=== PATIENT | male | born 1955 | race African-American/Black ===

== ENCOUNTER 2016-12-18 12:45 | Inpatient (IN) | payer MEDICAID, OTHER ==
[~2016-12-18] VITALS: Ht 177.8 cm; Wt 68.1 kg
[2016-12-18] MEDS ORDERED: FLOM5CAP PO (13:06)
[2016-12-18] MEDS ORDERED: CLAR10CA3 PO (13:06)
[2016-12-18] MEDS ORDERED: MULT1TAB18 PO (13:06)
[2016-12-18] MEDS ORDERED: LISI2.5T3 PO (13:06)
[2016-12-18 13:36] LABS: INR 1.12
[2016-12-18 13:37] LABS: ADD MORPHOLOGY? YES; BASO % 0.4 % (0.0-1.0); EOS % 0.3 % (0.0-3.0); LARGE UNSTAINED CELL # 0.2 K/mm3 (0.0-0.4); LARGE UNSTAINED CELL % 1.3 % (0.0-4.0); LYMPH # 0.9 K/mm3 (1.5-4.5); MEAN CORPUSCULAR HEMOGLOBIN 22.3 pg (27.0-33.0); MEAN CORPUSCULAR HGB CONC 29.5 g/dl (32.0-36.5); MEAN CORPUSCULAR VOLUME 75.6 fl (80.0-96.0); MONO # 0.7 K/mm3 (0.0-0.8); MONO % 5.7 % (0.0-5.0); NEUTROPHILS # 9.7 K/mm3 (1.8-7.7); NEUTROPHILS % 84.3 % (36.0-66.0); PLATELET COUNT, AUTOMATED 516 k/mm3 (150-450); RED CELL DISTRIBUTION WIDTH 20.9 % (11.5-14.5); WHITE BLOOD COUNT 11.5 K/mm3 (4.0-10.0)
[2016-12-18 13:45] LABS: ALBUMIN 3.7 GM/DL (3.2-5.2); ALBUMIN/GLOBULIN RATIO 0.93 (1.00-1.93); BILIRUBIN,DIRECT 0.1 MG/DL (0.0-0.2); BILIRUBIN,TOTAL 0.3 MG/DL (0.2-1.0); CALCIUM LEVEL 9.3 MG/DL (8.8-10.2); CREATININE FOR GFR 5.86 MG/DL (0.70-1.30); GLOMERULAR FILTRATION RATE 12.8 (>49); TOTAL PROTEIN 7.7 GM/DL (6.4-8.2)
[2016-12-18] MEDS: NS 1,000 ML IV SCH (13:45)
[2016-12-18 13:55] LABS: POTASSIUM SERUM 5.5 MEQ/L (3.5-5.1)
[2016-12-18 13:58] LABS: ANISOCYTOSIS 2+; HYPOCHROMASIA 3+
[2016-12-18 13:59] LABS: MICROCYTOSIS 2+
--- NOTE | 2016-12-18 14:53 | REP ---
Clinical: Possible bladder mass. Findings: The prostate gland is severely enlarged and appears to infiltrate the bladder with a somewhat left-sided predominance and measures greater than 9.5 x 6.8 x 7.4 cm. High density material within the bladder may represent extension of the mass and/or hemorrhagic debris. Smart catheter identified within the bladder and somewhat inseparable from surrounding high density material. These findings cause bilateral grade 4/5 hydroureteronephrosis and likely the cause for atrophic left kidney. Extensive conglomerate retroperitoneal adenopathy as well as bilateral pelvic sidewall adenopathy is appreciated. These findings are somewhat limited in evaluation due to the lack of both oral and intravenous contrast enhancement. The osseous structures appear relatively normal without focal sclerotic lesions to identify metastatic disease related to presumed prostate cancer. Liver, spleen, pancreas, gallbladder and bilateral adrenal glands are normal. The enteric system is without obstruction or acute inflammatory process. No ascites. No free air. Lung bases are relatively clear with minuscule area of presumed scarring in the left base. Impression: Severe enlarged prostate gland with extension into the bladder causing grade 4/5 bilateral hydronephrosis as well as atrophic left kidney. Associated significant pelvic and retroperitoneal adenopathy. Findings are most compatible with malignancy. Evaluation is significantly limited by the lack of both oral and intravenous contrast enhancement. Signed by William Amos MD 12/18/2016 02:45 P
[2016-12-18] MEDS ORDERED: ONDANSETRON 4MG/2ML VIAL (J2405) IV PRN (15:30)
[2016-12-18] MEDS: MORPHINE 2 MG/ML 1ML SYRINGE IV PRN (16:10)
[2016-12-18] MEDS ORDERED: SOD POLYSTYRENE SULFONATE SUSP 15 GM/60 ML UD PO ONE (16:15)
[2016-12-18] MEDS: PERCOCET 5MG/325MG TAB PO PRN ×2 (16:35→23:40)
--- NOTE | 2016-12-18 16:37 | HPE ---
DATE OF ADMISSION: 12/18/2016 PRIMARY CARE PROVIDER: None listed. CODE STATUS: FULL CODE. CHIEF COMPLAINT: Abdominal discomfort and distension. HISTORY OF PRESENT ILLNESS: 61-year-old male who is incarcerated locally presents to the emergency department with worsening symptoms of abdominal pressure, distension, difficulty urinating and hematuria that he has noticed with some lower back pressure. Apparently he was seen through [facility] within the last few months, was told that he had some bladder issues that he has not followed up on, was seen by a urologist down there and states that over the last 24 hours or so he has noticed some chills without any rigors, no reported fever but has had increased abdominal discomfort, frequency and hematuria. He denies headache, lightheadedness, dizziness. No chest pain, shortness of breath, productive sputum, cough or hemoptysis. PAST MEDICAL HISTORY: Positive for tobacco use. Positive for BPH, chronic renal insufficiency. PAST SURGICAL HISTORY: Recent uteroscopy on 06/28/2015. The patient stated that he was seen more recently than that but I cannot find any records to substantiate that. At any rate, we will try to reach out to [facility]. FAMILY HISTORY: Noncontributory. SOCIAL HISTORY: Positive tobacco use. Recently incarcerated. ALLERGIES: No known drug allergies. CURRENT MEDICATIONS: - Flomax 0.4 mg daily - multivitamin daily - lisinopril 12.5 mg daily - loratadine 10 mg daily REVIEW OF SYSTEMS: The patient does appear to be in quite a bit of discomfort but he denies lightheadedness, dizziness, headache, blurry vision, double vision. No difficulty with speech or swallow. Denies difficulty with appetite. No chest pain, shortness of breath, dyspnea on exertion, productive sputum or hemoptysis. He has some abdominal distension, frequency, hematuria with some vague back discomfort. Denies any neurologic deficits. No history of bleeding or bruising disorder. No history of venous thromboembolism. No history of underlying psychiatric abnormality. 10-point review of systems complete, pertinent positives are listed. PHYSICAL EXAMINATION: Temperature is 99.7, pulse 114, respiratory rate 18, blood pressure 181/102, SpO2 is 98% on room air. GENERAL: The patient appears to be in no acute distress but does appear to be uncomfortable with the abdominal discomfort. HEENT: Head is atraumatic, normocephalic. Eyes: Pupils equal, round, and reactive to light and accommodation. Throat clear. Neck: Supple. LUNGS: Clear to auscultation bilaterally. HEART: Regular rate and rhythm. ABDOMEN: Soft. Some vague suprapubic discomfort and tenderness. EXTREMITIES: No edema, no calf tenderness. LABORATORY DATA AND DIAGNOSTICS: White count 11.5, hemoglobin 6.1, platelets are 516,000, sodium 138, potassium 5.5, chloride 108, bicarbonate 21, anion gap 9, BUN is 45, creatinine is 5.86, glucose 122, total bilirubin 0.3, direct bilirubin 0.1, AST 14, ALT is 13, alkaline phosphatase 116, albumin 3.7, lipase is 168, INR 1.12. Urinalysis is red, turbid, obscure due to large amount of blood, 1-3 WBCs. Urine culture is pending. Blood cultures pending. The patient has been typed and crossed for blood. Will give him 2 units. IMPRESSION: Mr. Cannon is a 61-year-old gentleman who unfortunately has a bladder / prostate mass seen on CT of the abdomen and pelvis with contrast today which demonstrates severe enlarged prostate gland with extension to the bladder causing a 4-5 bilateral hydronephrosis as well as atrophic left kidney associated with significant pelvic and retroperitoneal adenopathy. Findings most compatible with malignancy. Evaluation is significantly limited due to lack of both oral and IV contrast. PROBLEM LIST: 1. Acute renal failure. 2. Hyperkalemia related to renal failure. 3. Acute blood loss anemia. 4. Hematuria. 5. Pelvic mass, likely bladder cancer. 6. History of high blood pressure. 7. Tobacco use, which we are encouraging smoking cessation and a Nicoderm patch will be provided. PLAN: The patient will be admitted to PCU. Will continue with blood products. Will plan on 2 units of blood. We did contact radiology for placement of bilateral nephrostomy tubes which will be scheduled for tomorrow morning. Will make him nothing by mouth after midnight. Will consult urology for further evaluation and see if we can obtain records from [facility]. DISPOSITION: The patient does appear to be quite ill with the renal failure. He does not appear to be septic at this time, will continue to want to watch him for this, should he develop signs or symptoms of sepsis. Cultures are pending. DVT prophylaxis with TEDs and sequentials..
[2016-12-18] MEDS: ACETAMINOPHEN TAB 650MG DOSE (2X325MG) PO PRN (17:29)
[2016-12-18 17:44] LABS: MICROSCOPIC INDICATED? MAN YES (NO)
[2016-12-18 17:50] VITALS: BP 168/98
[2016-12-18 17:55] LABS: RBC, URINE TNTC /hpf (0-3); SQUAMOUS EPITHELIAL CELL URINE SMALL AMOUNT /hpf (SMALL AMT); WBC, URINE TNTC /hpf (0-3)
[2016-12-18 17:56] LABS: BACTERIA, URINE NONE SEEN; HYALINE CAST, URINE NONE SEEN /lpf (0-1); MICROSCOPIC EXAM PERFORMED
[2016-12-18] MEDS: TAMSULOSIN 0.4 MG CAP PO SCH (18:34)
[2016-12-18] MEDS: NICOTINE 14 MG/24 HR TRANSDERMAL TD SCH (18:34)
[2016-12-18 20:00] VITALS: BP 190/95; PULSE 86
[2016-12-19] MEDS: NS 1,000 ML IV SCH ×3 (01:03→16:16)
[2016-12-19 04:00] VITALS: BP 174/92
[2016-12-19 05:08] LABS: MEAN CORPUSCULAR HEMOGLOBIN 24.6 pg (27.0-33.0); MEAN CORPUSCULAR HGB CONC 31.7 g/dl (32.0-36.5); MEAN CORPUSCULAR VOLUME 77.6 fl (80.0-96.0); RED CELL DISTRIBUTION WIDTH 19.8 % (11.5-14.5); WHITE BLOOD COUNT 11.8 K/mm3 (4.0-10.0)
[2016-12-19 05:19] LABS: CALCIUM LEVEL 8.2 MG/DL (8.8-10.2); CREATININE FOR GFR 6.01 MG/DL (0.70-1.30); GLOMERULAR FILTRATION RATE 12.4 (>49)
[2016-12-19 05:26] LABS: POTASSIUM SERUM 5.2 MEQ/L (3.5-5.1)
[2016-12-19 07:45] VITALS: BP 176/90
--- NOTE | 2016-12-19 07:50 | REP ---
Clinical: Acute renal failure. Technique: Real time mead scale and color evaluation using curved array transducer. Findings: The kidneys are normal in reniform shape with increased parenchymal echogenicity suggesting chronic renal disease. Right kidney measures 12.2 x 5.8 x 6.1 cm with grade III hydronephrosis (proximal ureter measures 14.5 mm diameter). Left kidney measures 10.1 x 5.1 x 4.5 cm with grade IV/V hydronephrosis (proximal ureter measures 17.8 mm diameter). Smart catheter is identified with in the mass/debris filled bladder. Impression: 1. Significant bilateral hydroureteronephrosis and chronic medical renal disease likely secondary to chronic gas and debris filling an irregular appearing bladder. Signed by William Amos MD 12/19/2016 07:41 A
[2016-12-19] MEDS: NICOTINE 14 MG/24 HR TRANSDERMAL TD SCH (08:05)
[2016-12-19] MEDS: ACETAMINOPHEN TAB 650MG DOSE (2X325MG) PO PRN ×3 (08:06→19:55)
[2016-12-19] MEDS: TAMSULOSIN 0.4 MG CAP PO SCH (08:06)
[2016-12-19] MEDS ORDERED: fentaNYL 100 MCG/2 ML INJECTION (J3010) As Ordered ONE (09:02)
[2016-12-19] MEDS ORDERED: MIDAZOLAM INJ 2 MG/2 ML VIAL (J2250) As Ordered ONE (09:02)
[2016-12-19] MEDS ORDERED: LIDOCAINE 2% MDV 20 ML VIAL As Ordered ONE (09:10)
[2016-12-19] MEDS ORDERED: ISOVUE-300 61% 50ML VIAL (Q9967) As Ordered ONE ×2 (09:10→09:14)
[2016-12-19] MEDS ORDERED: cefTRIAXone SOD 1 GM VIAL (J0696) As Ordered ONE (09:21)
--- NOTE | 2016-12-19 11:37 | IPN ---
DATE OF SERVICE: 12/19/2016 Mr. Cannon has no complaints of pain this morning. 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 No complaints of chest pain. Not short of breath. Says that he has previously been treated for urinary obstruction and was offered a surgery, which he declined. Maximum temperature (Tmax) 101.7, current temperature (Tcurrent) 99.9, pulse 105, respiratory rate 20, blood pressure 176/90, 97% on room air. Intake and output (I and O) notable for a negative fluid balance of -1410. He is awake, appropriately interactive, pleasantly conversant. A reasonable historian. Neck is thin, supple. Body mass index (BMI) is 21.6. Breathing is symmetrical. I-to-E ratio is 1:3. Heart is borderline tachycardic. Normal S1, S2. Abdomen is scaphoid, soft, with some mild suprapubic tenderness without rebound or guarding. White cell count 11.8, hemoglobin 7.4, platelets of 388, potassium 5.2, carbon dioxide 20. BUN 48, creatinine 6.0. My assessment is as follows: This is a 61-year-old with acute renal failure, hyperkalemia related to acute renal failure, acute blood loss anemia, ongoing hematuria. The plan is as follows: 1. The patient has acute blood loss anemia. Will receive another unit of blood, which has been ordered. The source of bleeding is genitourinary (). Urology consult has been ordered. 2. The patient has acute renal failure, which is likely acute on chronic with hyperkalemia. I have consulted Dr. Mark for assistance in his management. The patient is getting nephrostomy tubes and urology consultation. Old records have been ordered. 3. The patient has ongoing elevation in blood pressure, which is likely complicated by his underlying renal disease. 4. The patient has fever. Possibility of obstructive uropathy and infection related that is considered. Will start broad-spectrum antibiotics. Urine and blood cultures have been sent previously.
[2016-12-19] MEDS ORDERED: fentaNYL 100 MCG/2 ML INJECTION (J3010) IV PRN (12:00)
[2016-12-19] MEDS ORDERED: LR 1,000 ML IV SCH (12:00)
[2016-12-19] MEDS ORDERED: HYDROmorphone HCL 1 MG/ML SYRINGE (J1170) IV PRN (12:00)
[2016-12-19] MEDS ORDERED: ONDANSETRON 4MG/2ML VIAL (J2405) IV PRN (12:00)
[2016-12-19] MEDS ORDERED: PERCOCET 5MG/325MG TAB PO PRN (12:00)
[2016-12-19] MEDS ORDERED: PERCOCET 5MG/325MG TAB As Ordered ONE (12:14)
[2016-12-19 12:30] VITALS: BP 170/86
[2016-12-19] MEDS ORDERED: cefTRIAXone SOD 1 GM in D5W MINI-BAG PLUS 50 ML IV ONE (14:00)
[2016-12-19] MEDS: MORPHINE 2 MG/ML 1ML SYRINGE IV PRN ×2 (15:30→21:37)
[2016-12-19] MEDS ORDERED: PIPERACILLIN/TAZOBACTAM SOD 3.375 GM in D5W MINI-BAG PLUS 50 ML IV SCH (16:45)
[2016-12-19] MEDS: PIPERACILLIN/TAZOBACTAM SOD 2.25 GM in D5W MINI-BAG PLUS 50 ML IV SCH (17:06)
--- NOTE | 2016-12-19 17:26 | REP ---
The procedure was performed under the direct supervision of Dr. Mckenzie CLINICAL HISTORY: Bilateral hydronephrosis PROCEDURE: Bilateral nephrostomy drainage catheter insertion Medications: 1 gram Rocephin EBL: Less than 2 ml FLUORO TIME: 6.1 minutesCONTRAST: 25 ml Isovue 300DEVICE USED: 10 F Nephrostomy (Resolve) catheter (x2) Lot# [id number] The risks and benefits of the procedure were explained to the patient and informed consent was obtained. Anesthesia was present throughout the procedure for sedation and pain control. The patient was brought into the interventional radiology suite. A time out procedure was performed. The patient was placed in the prone position . The right and left renal collecting systems were localized using ultrasound guidance. The skin was prepped and draped in a sterile fashion. The right kidney was addressed first. The right lower pole claudette was localized using ultrasound guidance. 2% lidocaine was used as a local anesthetic. Using ultrasound guidance 821 gauge needle was inserted and advanced into the claudette. A 0.0 18 guide wire was inserted. The needle was removed and and the dilator and sheath was inserted over the guide wire however cannot be advanced into the collecting system. Multiple attempts were tried. The introducer and guidewire were then removed. The and upper pole calices and localized using ultrasound guidance. 2% lidocaine was used as a local anesthetic. Using ultrasound guidance the 21 gauge needle was inserted into the collecting system. A 0.018 guide wire was inserted. The needle was removed and and the introducer was inserted over the guide wire. The guidewire was removed and the 0.035 guidewire was inserted however was unable to be advanced further into the collecting system. The guidewire was removed and the 0.018 guide wire was reinserted. Introducer was removed and a 5-Chinese Kumpe catheter was inserted over the guide wire. The guide wire was then advanced into the ureter. The catheter was removed and the introducer was reinserted over the guide wire. The guidewire was removed and a 0.035 guidewire was inserted and advanced into the ureter. The introducer was removed and an 8.5 Chinese resolve catheter was inserted over the guide wire. The loop of the catheter was formed in the renal pelvis. The guide wire was then removed. Isovue 300 was injected and images demonstrate good catheter placement. The catheter was affixed to the skin and connected to a gravity drainage bag. The left kidney was then addressed. The left lower pole claudette was localized using ultrasound guidance. 2% lidocaine was used as a local anesthetic. Using ultrasound guidance a 21-gauge needle was inserted and advanced into the collecting system. A 0.018 guidewire was inserted and advanced into the ureter. The needle was removed and the introducer was inserted over the guide wire. The guidewire was removed and a 0.035 a guide wire was inserted and advanced into the ureter. Introducer was removed and a 8.5 Chinese resolve catheter was inserted over the guide wire. The guidewire was removed and the loop of the catheter was formed in the renal pelvis. Isovue 300 was injected and images demonstrate good needle placement. The catheter was affixed to the skin and connected to gravity drainage bag. A sterile dressing was applied over both insertion sites. The patient tolerated the procedure well and there were no immediate complications. This procedure was performed using fluoroscopy. Impression: Successful insertion of bilateral 8.5 Chinese nephrostomy urinary diversion tubes as discussed above. Reviewed by ALBERT Chi 12/19/2016 03:36 PSigned by Cedric Mckenzie MD 12/19/2016 05:17 P
[2016-12-19] MEDS ORDERED: VANCOMYCIN HCL 1,000 MG, VIAL MATE ADAPTER 1 EACH in D5W 250 ML IV ONE (18:00)
[2016-12-19 20:00] VITALS: BP 149/84
[2016-12-19 23:59] VITALS: BP 153/87
[2016-12-20] MEDS: PIPERACILLIN/TAZOBACTAM SOD 2.25 GM in D5W MINI-BAG PLUS 50 ML IV SCH ×3 (00:26→16:28)
[2016-12-20] MEDS: MORPHINE 2 MG/ML 1ML SYRINGE IV PRN ×2 (02:53→21:34)
[2016-12-20 05:31] LABS: MEAN CORPUSCULAR HEMOGLOBIN 25.3 pg (27.0-33.0); MEAN CORPUSCULAR HGB CONC 31.5 g/dl (32.0-36.5); MEAN CORPUSCULAR VOLUME 80.4 fl (80.0-96.0); RED CELL DISTRIBUTION WIDTH 19.7 % (11.5-14.5); WHITE BLOOD COUNT 14.8 K/mm3 (4.0-10.0)
[2016-12-20 05:44] LABS: CALCIUM LEVEL 8.4 MG/DL (8.8-10.2); CREATININE FOR GFR 4.78 MG/DL (0.70-1.30); GLOMERULAR FILTRATION RATE 16.2 (>49); POTASSIUM SERUM 5.1 MEQ/L (3.5-5.1)
[2016-12-20 06:00] VITALS: BP 169/89
[2016-12-20] MEDS: NS 1,000 ML IV SCH ×2 (06:15→15:05)
[2016-12-20 08:00] VITALS: BP 126/72
[2016-12-20] MEDS: TAMSULOSIN 0.4 MG CAP PO SCH (08:58)
[2016-12-20] MEDS: NICOTINE 14 MG/24 HR TRANSDERMAL TD SCH (08:59)
[2016-12-20] MEDS: ACETAMINOPHEN TAB 650MG DOSE (2X325MG) PO PRN (10:52)
--- NOTE | 2016-12-20 11:07 | CR ---
DATE OF CONSULTATION: 12/20/2016 REQUESTED BY: Dr. Kenroy Collins. REASON FOR CONSULTATION: Acute renal failure with bilateral hydronephrosis and urinary retention. HISTORY OF PRESENT ILLNESS: Mr. Cannon is a 61-year-old gentleman who is currently incarcerated and was brought to the emergency room by the senior living officers. His presenting complaints including abdominal distension, hematuria and difficulty voiding. Apparently a few months ago, he was seen at [facility] for similar complaints and at that time, he had a cystoscopy however, he is not aware of a definitive diagnosis. He was lost to followup. In any event, here in the emergency room, CT scan of abdomen and pelvis was done which showed severe enlarged prostate with extension into bladder and grade 4-5 bilateral hydronephrosis as well as atrophic left kidney. There was significant pelvic and retroperitoneal adenopathy noted. The patient is admitted and currently has a three-way Smart catheter for irrigation. He also underwent bilateral nephrostomy tube placement yesterday with good urine output through his right nephrostomy but no urine output through the left nephrostomy. A nephrology consultation was requested yesterday and the patient is seen this morning. PAST MEDICAL AND SURGICAL HISTORY: Known for benign prostatic hypertrophy (BPH) and urinary retention. History of chronic renal insufficiency. Hypertension. MEDICATIONS PRIOR TO ADMISSION: His medications included: - Flomax 0.4 mg daily - lisinopril 2.5 mg daily - multivitamin daily - loratadine 10 mg daily ALLERGIES: The patient has no known drug allergies. PERSONAL AND SOCIAL HISTORY: The patient reports 45 year history of smoking. He denies any alcohol or drug use for last 20 years. He is currently incarcerated. FAMILY HISTORY: Negative for end-stage renal disease. REVIEW OF SYSTEMS: The patient reported some chills prior to admission. There is no fever at present. He reported difficulty voiding with abdominal distension and poor appetite prior to admission. Ears, nose and throat are unremarkable. Cardiovascular system negative for dyspnea or chest pain. Respiratory system negative for cough or hemoptysis. Genitourinary (GI) system is significant for poor appetite. He denies any rectal bleeding or black colored stools. Genitourinary () system is as per history of present illness. The patient has chronic difficulty voiding and urinary retention. Now he has a three-way Smart catheter for irrigation and bilateral nephrostomy tubes. Large mass in prostate invading the bladder is noticed on the CT scan. Hematological system is significant for hematuria and severe anemia requiring transfusions. Endocrine system is negative for diabetes or thyroid problems. Psychosocial system is negative for depression or anxiety. Neurological system is negative for seizures or stroke. PHYSICAL EXAMINATION: The patient is lying in the bed without any acute distress at the time of my visit. Temperature is 97.3 degrees Fahrenheit, heart rate 116 per minute and respiratory rate 20 per minute. Blood pressure 126/72 mmHg and oxygen saturation 98% on room air. His head is atraumatic. Neck is supple and without jugular venous distention (JVD) or thyroid enlargement. Ears, nose and throat are unremarkable. Heart: Sounds are tachycardiac but regular. Lungs: Good air entry bilaterally without any wheezing or rales. Abdomen is soft with suprapubic tenderness and no palpable hepatosplenomegaly. Bowel sounds are present. Extremities: Have no cyanosis or clubbing. Neurologically he is awake, alert and oriented times three. LABORATORY DATA: On admission, his WBC count is 11.5, hemoglobin 6.1 and hematocrit 20.7. Last evening, his hemoglobin was up to 8.2 and hematocrit 26.5 following transfusion. Today his WBC count is 14.8, hemoglobin 7.4 and hematocrit 23.5. On admission his sodium was 138 and potassium 5.5. BUN was 45 and creatinine 5.86. Yesterday BUN was 48 and creatinine 6.0. Today his sodium is 142 and potassium 5.1. CO2 20, BUN 46 and creatinine 4.78. Glucose 100 and calcium 8.4. Imaging studies included a CT scan of abdomen and pelvis which showed bilateral hydronephrosis with atrophic left kidney. A severely enlarged prostate gland. Renal ultrasound was also done which showed right kidney 12.2 cm and left kidney 10.1 cm. Bilateral hydronephrosis and hydroureter noted. PROBLEMS: 1. Acute renal failure superimposed on chronic kidney disease. The patient most likely has significant chronic kidney disease related to chronic obstruction and atrophic left kidney. He had obstructive uropathy related to bladder neck obstruction. He already has a bilateral nephrostomy tube placed. His right kidney is producing good amount of urine and kidney function has started to improve. His left kidney is atrophic and there is minimal to no drainage from the left nephrostomy tube. At this point, kidney function is improving. The patient has no uremic symptoms. There is no emergent indication for dialysis. I suggest to continue with aggressive IV fluid hydration due to possible postobstructive diuresis. 2. 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 Recommend urology evaluation for possible cystoscopy and prostate biopsies. The patient is likely to eventually need surgery and/or radiation plus chemo. 3. Hyperkalemia. He had hyperkalemia on admission which has already improved. Now he has good urine output from the right kidney. No further intervention is indicated at this point. 4. Anemia requiring transfusions. The patient has gross hematuria. He also has history of chronic hematuria and renal failure. At present, I would recommend to continue with transfusions as needed. We will not consider Aranesp due to ongoing blood loss and malignancy. I thank you for involving me in the care of Mr. Cannon. I will follow him along with you.
[2016-12-20 11:44] VITALS: BP 164/86
--- NOTE | 2016-12-20 12:39 | IPN ---
DATE: 12/20/2016 Mr. Cannon is feeling a little better this morning. He has no complaints of pain, chest pain, shortness of breath. He is tolerating a diet. A little frustrated about some of the interpersonal interactions he has had during his stay and at previous hospitalizations. Temperature 97.3, pulse 116, respiratory rate 20, blood pressure 126/72, 98% in room air. Input and output notable for negative fluid balance of -1520. He is having nephrostomy output much higher from his right kidney than his left. He is awake. Appropriately interactive. Mucous membranes are moist. Neck supple. He is thin appearing. Breathing symmetrical, rested. Heart is in a regular rate and rhythm. He is tachycardic with a rate of around 110 on my exam. Radial pulses are 2+. Capillary refill is less than 2 seconds. Abdomen soft, nontender. No lower extremity edema. White cell count 14.8, hemoglobin 7.4, platelets of 351. BUN 46, creatinine 4.78. My assessment is as follows: 61-year-old with acute renal failure in the setting of chronic kidney disease, resolved hyperkalemia, acute blood loss anemia and ongoing hematuria. Plan is as follows: 1. The patient has acute blood loss anemia continues. Will received another unit of blood today. Will repeat hemoglobin and hematocrit this evening. This is likely a genitourinary () source possibly related to undiagnosed malignancy causing bladder outlet obstruction. 2. The patient has acute renal failure: I discussed the case in person with Dr. Mark. Greatly appreciate his assistance in the patient's management. Will give IV fluid and monitor for improvement. 3. Infectious disease: The patient had fever, urinary obstruction and elevated white cell count. The patient has been started on broad-spectrum antibiotics. He was given a single dose of vancomycin and will await culture results. 4. Deep venous thrombosis (DVT) prophylaxis is mechanical.
[2016-12-20] MEDS: PERCOCET 5MG/325MG TAB PO PRN (15:06)
[2016-12-20 15:53] VITALS: BP 175/98
[2016-12-20 20:00] VITALS: BP 154/80
[2016-12-21 00:14] VITALS: BP 142/87
[2016-12-21] MEDS: PIPERACILLIN/TAZOBACTAM SOD 2.25 GM in D5W MINI-BAG PLUS 50 ML IV SCH ×3 (01:25→16:48)
[2016-12-21 04:00] VITALS: BP 137/82
[2016-12-21] MEDS: NS 1,000 ML IV SCH ×2 (04:41→12:45)
[2016-12-21 05:21] LABS: MEAN CORPUSCULAR HEMOGLOBIN 25.6 pg (27.0-33.0); MEAN CORPUSCULAR VOLUME 82.7 fl (80.0-96.0); RED CELL DISTRIBUTION WIDTH 19.4 % (11.5-14.5); WHITE BLOOD COUNT 13.4 K/mm3 (4.0-10.0)
[2016-12-21 05:27] LABS: CALCIUM LEVEL 8.7 MG/DL (8.8-10.2); CREATININE FOR GFR 3.47 MG/DL (0.70-1.30); GLOMERULAR FILTRATION RATE 23.4 (>49); POTASSIUM SERUM 4.5 MEQ/L (3.5-5.1)
[2016-12-21 07:30] VITALS: BP 171/95
[2016-12-21] MEDS: TAMSULOSIN 0.4 MG CAP PO SCH (08:10)
[2016-12-21] MEDS: NICOTINE 14 MG/24 HR TRANSDERMAL TD SCH (08:10)
--- NOTE | 2016-12-21 10:46 | IPN ---
DATE: 12/21/2016 Mr. Cannon is seen this morning on his bedside. He continues to have bladder irrigation with pink return. His right nephrostomy tube is draining pinkish urine. There is minimal drainage from the left nephrostomy tube. The patient denies any fever or chills. He denies any dyspnea or chest pain. On physical exam, temperature 98.9 degrees Fahrenheit, heart rate 104 per minute and respiratory rate 20 per minute. Blood pressure 170/95 mmHg and oxygen saturation 99% on room air. Intake and output records are probably inaccurate. His head is atraumatic. Neck is supple and without JVD or thyroid enlargement. Ears, nose and throat are unremarkable. Heart sounds are tachycardiac but regular. Lungs clear to auscultation. Abdomen soft and minimal tenderness in suprapubic area is present. Bowel sounds are normal. Extremities have no cyanosis or clubbing. Skin has no rash or ulcers. Neurologically he is awake, alert and oriented x3. Today's labs show WBC count 13.4, hemoglobin 8.5 and hematocrit 27.5. Sodium 143 and potassium 4.5. BUN is down to 31 and creatinine 3.47. PROBLEMS: 1. Acute renal failure superimposed on chronic kidney disease. Improvement in kidney function is noticed with good drainage from right nephrostomy tube. At this point, I would recommend to continue with IV fluid hydration and monitoring of kidney function on daily basis. 2. 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 The patient remains on bladder irrigation via a three-way Smart catheter. He has been seen by urology. Further plan of care will be per urology. He is likely to require a biopsy and cystoscopy. 3. Acute blood loss anemia. The patient has received transfusions with some improvement in his anemia. He continues to have gross hematuria through the Smart catheter. He is likely to require further transfusion as needed.
[2016-12-21 11:50] VITALS: BP 160/89
[2016-12-21] MEDS: PERCOCET 5MG/325MG TAB PO PRN (14:23)
[2016-12-21 16:00] VITALS: BP 161/91
--- NOTE | 2016-12-21 18:13 | IPN ---
DATE: 12/21/2016 Mr. Cannon is feeling well today. He is tolerating a diet. Has no complaints of chest pain. No shortness of breath. Does have some suprapubic discomfort. Denies any knowledge of previous bladder tumor. Temperature is 98.9, pulse 98, respiratory rate 20, blood pressure 161/91, 99% on room air. Intake and output notable for a negative balance of -2230. Weight 69.4 kg, body mass index 22. He is awake, appropriately interactive, pleasantly conversant. Mucous membranes moist. Neck is supple. Breathing symmetrical and rested. Heart is in a regular rate and rhythm. He is at times tachycardic. Abdomen soft, doughy, nontender. White cell count 13.4, hemoglobin 8.5, platelets of 443. BUN 31, creatinine 3.47. ASSESSMENT: This is a 61-year-old with acute renal failure in the setting of chronic kidney disease with acute blood loss anemia, ongoing hematuria in the setting of suspected bladder tumor. 1. Acute blood loss anemia. This appears to be stabilized. No role for transfusion today. Will consider on a daily basis. 2. Patient has undiagnosed malignancy causing bladder outlet obstruction. Will need biopsy. Discussed this case by phone with Dr. Stuart and will consider biopsy at this institution. 3. Patient has acute renal failure in the setting of obstructive uropathy. Is showing improvement. His baseline is likely abnormal. 4. Infectious disease. Patient had fever, urinary obstruction, elevated white cell count. He is on broad-spectrum antibiotics. Cultures are pending. He did receive a solitary dose of vancomycin. Will repeat a trough level in the morning. 5. Patient has mechanical deep vein thrombosis (DVT) prophylaxis, which he is wearing during my evaluation. 6. Patient has a complicated social situation, as he is a prisoner at [facility]. If he requires chemotherapy, he may need transfer to another institution, either [place] or [facility] ([facility]), depending on what care is required.
[2016-12-21 20:00] VITALS: BP 151/88
--- NOTE | 2016-12-21 20:40 | REP ---
Clinical: Preoperative assessment . Comparison: None . Findings: The mediastinum and cardiac silhouette are stable and within normal limits for portable technique. Airway is patent and midline. The lung bird are clear without acute consolidation, effusion, or pneumothorax. Skeletal structures are intact. Impression: No acute cardiopulmonary process appreciated. Signed by William Amos MD 12/21/2016 08:31 P
[2016-12-21] MEDS: ACETAMINOPHEN TAB 650MG DOSE (2X325MG) PO PRN (23:12)
[2016-12-22 00:08] LABS: PSA % FREE 24.7 % (.); PSA FREE 1.53 ng/mL; PSA TOTAL 6.2 ng/mL (0.0-4.0)
[2016-12-22] MEDS: PIPERACILLIN/TAZOBACTAM SOD 2.25 GM in D5W MINI-BAG PLUS 50 ML IV SCH ×3 (00:25→16:00)
[2016-12-22 06:00] VITALS: BP 164/95
[2016-12-22] MEDS: NS 1,000 ML IV SCH ×2 (06:41→09:08)
[2016-12-22 07:21] LABS: MEAN CORPUSCULAR HEMOGLOBIN 25.2 pg (27.0-33.0); MEAN CORPUSCULAR HGB CONC 30.2 g/dl (32.0-36.5); MEAN CORPUSCULAR VOLUME 83.4 fl (80.0-96.0); RED CELL DISTRIBUTION WIDTH 19.5 % (11.5-14.5); WHITE BLOOD COUNT 11.3 K/mm3 (4.0-10.0)
[2016-12-22 07:24] LABS: CALCIUM LEVEL 9.1 MG/DL (8.8-10.2); CREATININE FOR GFR 2.59 MG/DL (0.70-1.30); GLOMERULAR FILTRATION RATE 32.8 (>49)
[2016-12-22] MEDS: PERCOCET 5MG/325MG TAB PO PRN (07:29)
[2016-12-22] MEDS: TAMSULOSIN 0.4 MG CAP PO SCH (09:08)
[2016-12-22] MEDS: NICOTINE 14 MG/24 HR TRANSDERMAL TD SCH (09:09)
--- NOTE | 2016-12-22 11:51 | ECGEPIP ---
Stationary ECG Study [facility] Test Date: 2016-12-21 Pat Name: JA WONG Department: Room: [place] [address] Gender: M Shirt Trimmer: : 1955 Requested By: KENROY Tesfaye Order Number: [id number] Reading MD: Kenroy Collins Measurements Intervals [place] Rate: 100 P: 80 WY: 156 QRS: 71 QRSD: 93 T: 63 QT: 316 QTc: 409 Interpretive Statements SINUS TACHYCARDIA Comparison tracing not on file Electronically Signed On 12-22-2016 11:51:24 EDT by Kenroy Collins
[2016-12-22] MEDS: NS 0.45% 1,000 ML IV SCH ×2 (12:19→22:23)
[2016-12-22 14:00] VITALS: BP 166/91
--- NOTE | 2016-12-22 14:54 | IPNPDOC ---
Assessment/Plan Date Seen The patient was seen on 12/22/16. Plan/VTE VTE Prophylaxis Ordered?: Yes Plan/Urinary Catheter Reason for insertion/continuin: Acute obstruct/retention Subjective Review oF Systems Chief Complaint The patient is a 61-year-old male admitted with a reason for visit of hematuria (2 years); bladder tumor; urinary retention; ARF s/p bilateral NT; LK atrophic; DOC patient. Asymptomatic. Since admission (12/18/16), 5u pRBC. Smart light pink on moderate CBI; manual irrigate NS clots. Comfortable. 112, 16, 164/95, 98.5f. Abdo: benign. Bilateral NT. Smart as above. Left NT minimal drainage. Urine culture (12/19/16) negative. (12/22/16) Hg 8.0, wbc 11.3, Cr 2.6 (down). INR (12/18/16) 1.1. CT w/o IV (12/18/16) clot, BPH, LK atrophic, bilateral 4/4 hydronephrosis, retroperitoneal lymphadenopathy. A: Above. P: IV Zosyn. NPO. Cystoscopy, clot evacuation, TURBT. Informed consent on chart. SCD. Objective Vital Signs/I&O Vital Signs Date Time Temp Pulse Resp B/P (MAP) Pulse Ox O2 Delivery O2 Flow Rate FiO2 12/22/16 09:05 16 12/22/16 06:00 98.5 112 164/95 (118) 100 Room Air I&O- Last 24 Hours up to 6 AM 12/22/16 06:00 Intake Total 1000 ml Output Total 8025 ml Balance -7025 ml Laboratory Data Labs 24H Laboratory Tests 2 12/22/16 06:41: Anion Gap 12, Glomerular Filtration Rate 32.8L, Blood Urea Nitrogen 23H, Creatinine 2.59H, Sodium Level 144, Potassium Level 4.0, Chloride Level 112H, Carbon Dioxide Level 20L, Calcium Level 9.1 CBC/BMP Laboratory Tests 12/22/16 06:41 Red Blood Count 3.19 L, Mean Corpuscular Volume 83.4, Mean Corpuscular Hemoglobin 25.2 L, Mean Corpuscular Hemoglobin Concent 30.2 L, Red Cell Distribution Width 19.5 H, Calcium Level 9.1 Microbiology Microbiology 12/18/16 Blood Culture - Preliminary, Resulted No Growth after 72 hours. All specime... 12/19/16 Anaerobic Culture - Final, Complete 12/19/16 Urine Culture - Final, Complete 12/19/16 Urine Culture - Final, Complete 12/19/16 Anaerobic Culture - Final, Complete 12/18/16 Urine Culture - Final, Complete BHAVNA RUBY MD Dec 22, 2016 14:54
[2016-12-22] MEDS ORDERED: NITROGLYCERIN 2% OINT 1 GM *U/D* PKT TOP ONE (15:30)
[2016-12-22 15:42] LABS: VANCOMYCIN RANDOM 3.9 UG/ML
--- NOTE | 2016-12-22 15:49 | IPN ---
DATE: 12/22/2016 Mr. Cannon is feeling well today. Has been up, walking around. No complaints of chest pain. No shortness of breath. Still passing red-stained urine. Temperature 98.5, pulse 112, respiratory rate 17, blood pressure 164/95, 100% on room air. Intake and output notable for negative fluid status. No recorded bowel movements. He is awake, appropriately interactive, pleasantly conversant. Remembers me from previous encounters. Mucous membranes moist. Neck supple. Breathing is symmetrical, rested. Inspiratory to expiratory (I-to-E) ratio is 1:3. Heart is regular rate and rhythm, tachycardic. Abdomen soft with mild suprapubic tenderness. No rebound. No guarding. White count 11.3, hemoglobin 8, platelets of 496. BUN 23, creatinine 2.59. Chest x-ray shows no acute process. EKG shows sinus tachycardia without prior for comparison. ASSESSMENT: This is a 61-year-old with acute renal failure in the setting of chronic kidney disease with acute blood loss anemia, ongoing hematuria in the setting of suspected bladder tumor and bladder outlet obstruction. PLAN: 1. Acute blood loss anemia. Patient's hemoglobin is 8. Would likely benefit from a unit of blood to be transfused prior to going to the operating room (OR) today. 2. Patient has nondiagnosed malignancy. Discussed the case personally with Dr. Dietz, who plans to take the patient for biopsy. Will likely need chemotherapy and further oncologic workup, which will most likely happen at another institution. 3. Patient has resolving acute renal failure. My suspicion is that his baseline creatinine is between 2 and 3. He is likely close to his baseline. He is no longer hyperkalemic. 4. Infectious disease. Patient had fever, urinary obstruction, elevated white cell count. Is on broad-spectrum antibiotics. Repeat vancomycin level is pending. 5. Patient has mechanical deep vein thrombosis (DVT) prophylaxis. 6. Patient has a complicated social situation, as he is a prisoner at [facility]. 7. Patient is presently medically optimized to proceed for cystoscopy.
--- NOTE | 2016-12-22 16:10 | IPN ---
DATE: 12/22/2016 SUBJECTIVE: The patient was seen and examined at the bedside today morning. The patient was standing in his room when I saw the patient, and he reports that he feels comfortable when he is standing. He is nothing by mouth today for cystoscopy. The patient continues to have continuous bladder irrigation. However, renal function continues to improved and he has good drainage from the right percutaneous nephrostomy. There is no good urine output from the left-sided nephrostomy tube at this time. REVIEW OF SYSTEMS: The patient denies any fevers, chills, rigors, headaches, nausea, vomiting, chest pain, shortness of breath. He does report persistent hematuria and he is on continuous bladder irrigation (CPI) at this time, and patient also reports that he has been persistently losing weight. Rest of review of systems is negative. OBJECTIVE: VITAL SIGNS: Temperature is 98.5 degrees Fahrenheit, blood pressure 164/95, pulse is 112, respiratory rate of 17, saturating 100% on room air. INTAKE AND OUTPUT: Urine output recorded in the right-sided drain is 3.5 liters. Weight in the bed scale was 69.4 kg yesterday, and urine output so far today from the right-sided percutaneous nephrostomy is 1.6 liters. PHYSICAL EXAMINATION: GENERAL: The patient is awake, alert, oriented times three, standing at the bedside in no apparent distress. HEAD/NECK: Extraocular muscles intact. Pupils equal, round, and reactive to light. Mucous membranes are moist. Neck is supple. There is no jugular venous distention (JVD). CARDIOVASCULAR: S1, S2. Regular rate. No murmur, rub, or gallop. RESPIRATORY: Chest is clear to auscultation bilaterally. Bilateral equal air entry. No rales or rhonchi. ABDOMEN: Soft, positive bowel sounds. Nontender. No organomegaly. GENITOURINARY: The patient has a CBI catheter at this time and CBI is running at this time and the urine in the bag is blood tinged. The patient also has bilateral percutaneous nephrostomy tubes. Right-sided nephrostomy bag is clear and is draining good amount of urine. However, left-sided nephrostomy bag is not draining urine and there is small amount of blood-tinged urine from yesterday which is around 10 mL. MUSCULOSKELETAL: No clubbing or cyanosis. Pulses are 2+. CENTRAL NERVOUS SYSTEM (ATHLET[employer]INING [employer]): No focal neurological deficit. Power is 5/5 in all extremities. PSYCHIATRIC: Normal mood and affect. LABORATORY DATA: WBC showed a WBC of 11.3, hemoglobin is eight, platelets are 496. BMP showed sodium 144, chloride 112, bicarbonate 20, BUN 23, creatinine 2.5, glucose 105, calcium 9.1. MICROBIOLOGY: Cultures are negative so far. IMAGING: A chest x-ray done yesterday showed no acute cardiopulmonary process. CURRENT INPATIENT MEDICATIONS: The patient's medications are all reviewed by me. He is currently on normal saline at 100 mL an hour. I am going to change the fluid to half normal saline. He continues to be on empiric Zosyn 2.25 grams every eight hours. There is no other change in the medications today as compared with yesterday. 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 PLAN: 1. Acute kidney injury superimposed on chronic kidney disease: It is secondary to bladder outlet obstruction, hydronephrosis, and patient has a left-sided atrophic kidney as well. The patient has bilateral percutaneous nephrostomies. Right-sided nephrostomy tube is draining well. His renal function continues to improve. However, I have changed his IV fluid hydration to half normal saline because of high blood pressure and hyperchloremia. Continue the half normal saline at this time because patient is nothing by mouth. Once the patient starts drinking enough liquids, then IV fluids will be stopped. 2. Hematuria and bladder outlet obstruction: The patient currently has continuous bladder irrigation running at this time. Continue CBI at this time. Rest of the management is as per urology. 3. Tumor of the Bladder with retroperitoneal lymph node involvement on the CT scan: The patient is nothing by mouth at this time. The patient is going to get cystoscopy and possible prostate biopsy today. Rest of the management is as per urology. The patient is incarcerated at this time. He will probably need to be transferred to a tertiary care facility for further management of his tumor if the biopsy result comes back positive. 4. Acute blood loss anemia: The patient's hemoglobin is eight at this time. He is going to get one unit of packed red blood cells (PRBCs) transfusion today. The plan of care was discussed with the patient and the patient's registered nurse (RN) at the bedside. LENNOX
[2016-12-22] MEDS ORDERED: ONDANSETRON 4MG/2ML VIAL (J2405) As Ordered ONE (20:14)
[2016-12-22] MEDS ORDERED: dexameTHASONE 4 MG/ML 1ML VIAL (J1100) As Ordered ONE (20:14)
[2016-12-22] MEDS ORDERED: fentaNYL 100 MCG/2 ML INJECTION (J3010) As Ordered ONE (21:02)
[2016-12-22] MEDS ORDERED: PERCOCET 5MG/325MG TAB As Ordered ONE (21:24)
[2016-12-22] MEDS ORDERED: ONDANSETRON 4MG/2ML VIAL (J2405) IV PRN (21:30)
[2016-12-22] MEDS ORDERED: fentaNYL 100 MCG/2 ML INJECTION (J3010) IV PRN (21:30)
[2016-12-22] MEDS ORDERED: PERCOCET 5MG/325MG TAB PO PRN (21:30)
[2016-12-22] MEDS ORDERED: LR 1,000 ML IV SCH (21:30)
[2016-12-22 21:46] LABS: MEAN CORPUSCULAR HEMOGLOBIN 25.5 pg (27.0-33.0); MEAN CORPUSCULAR VOLUME 84.9 fl (80.0-96.0); RED CELL DISTRIBUTION WIDTH 18.8 % (11.5-14.5); WHITE BLOOD COUNT 11.8 K/mm3 (4.0-10.0)
[2016-12-22 22:03] LABS: CALCIUM LEVEL 8.7 MG/DL (8.8-10.2); CREATININE FOR GFR 2.26 MG/DL (0.70-1.30); GLOMERULAR FILTRATION RATE 38.4 (>49); POTASSIUM SERUM 4.6 MEQ/L (3.5-5.1)
[2016-12-22 22:06] VITALS: BP 162/95
[2016-12-22 22:36] VITALS: BP 158/96
[2016-12-22 23:36] VITALS: BP 145/95
[2016-12-23] VITALS (8 sets, daily range): BP systolic 132–170; BP diastolic 78–98
[2016-12-23] MEDS: PIPERACILLIN/TAZOBACTAM SOD 2.25 GM in D5W MINI-BAG PLUS 50 ML IV SCH ×3 (00:19→17:10)
[2016-12-23 06:16] LABS: MEAN CORPUSCULAR HEMOGLOBIN 25.9 pg (27.0-33.0); MEAN CORPUSCULAR HGB CONC 31.6 g/dl (32.0-36.5); RED CELL DISTRIBUTION WIDTH 18.7 % (11.5-14.5); WHITE BLOOD COUNT 8.7 K/mm3 (4.0-10.0)
[2016-12-23 06:21] LABS: CALCIUM LEVEL 8.3 MG/DL (8.8-10.2); CREATININE FOR GFR 2.27 MG/DL (0.70-1.30); GLOMERULAR FILTRATION RATE 38.2 (>49); POTASSIUM SERUM 4.6 MEQ/L (3.5-5.1)
[2016-12-23] MEDS: NS 0.45% 1,000 ML IV SCH ×2 (08:30→21:01)
[2016-12-23] MEDS: TAMSULOSIN 0.4 MG CAP PO SCH (08:31)
[2016-12-23] MEDS: ACETAMINOPHEN TAB 650MG DOSE (2X325MG) PO PRN (08:31)
[2016-12-23] MEDS: NICOTINE 14 MG/24 HR TRANSDERMAL TD SCH (08:32)
--- NOTE | 2016-12-23 09:06 | RO ---
DATE OF PROCEDURE: 12/22/2016 PREOPERATIVE DIAGNOSES: 1. Large bladder tumor. 2. Clot and urinary retention. 3. Gross hematuria. POSTOPERATIVE DIAGNOSES: 1. Large bladder tumor. 2. Clot and urinary retention. 3. Gross hematuria. PROCEDURE: Cystoscopy, clot evacuation (400 mL), transurethral bladder tumor resection (greater than 2 cm), Button electrode debulking of bladder tumor, 22 Faroese 3-way Smart catheter insertion. SURGEON: Dr. Chris Dietz BARREL FILLER HEAD: ANESTHESIA: General. COMPLICATIONS: None. ESTIMATED BLOOD LOSS: 400 mL as clot. FINDINGS: 1. Bladder floor mass effect. 2. Large papillary bladder tumor involving the bladder floor, left bladder wall and bladder neck. PROCEDURE: In lithotomy position, the patient was prepped and draped in the usual fashion. A 26 Faroese resectoscope sheath was advanced into the urinary bladder under direct vision. Upon entering the bladder, a large bladder clot was visualized. Manual irrigation with normal saline for clot evacuation was performed, removing approximately 400 mL of organized clot. Following clot evacuation, a brito cystoscopy revealed a large papillary bladder tumor, multifocal on the bladder floor, left lateral wall and bladder neck. As well, on the bladder floor, there appeared to be an external mass effect pushing up on the bladder floor. The ureteric orifices could not be identified. A bilobed prostate was present. The urethra was normal. Transurethral bladder tumor resection of the papillary bladder tumor (posterior floor and left lateral to minimize risk of ureteric orifice injury) was performed (greater than 2 cm). With each resection pass of the resectoscope loop, it appeared that the tumor was highly vascular. As such, resected specimens were collected and sent for pathologic examination. The Olympus Button bipolar electrode was then utilized for tumor debulking and hemostasis. A significant amount of tumor burden was removed with vaporization. Given the size and diffuse nature of the tumor, complete resection is not possible. Upon confirmation of hemostasis and the absence of bladder perforation, the procedure was terminated. The instruments were removed and a 22 Faroese 3-way Smart catheter was inserted and then connected to straight drainage. A light pink urine effluent was noted. At the conclusion of the procedure, sponge and instrument counts were correct. Estimated blood loss for the procedure was 400 mL of clot. In the recovery room, the patient was alert and stable. DISPOSITION: Smart catheter and nephrostomy tube to straight drainage. Serial creatinines until creatinine eulalia. CBC and BMP in the recovery room. Intravenous antibiotics to continue. Review of pathology and prognosis will be reviewed with the patient by their primary urologist (Dr. Skye Stuart). LENNOX
[2016-12-23] MEDS: LACTOBACILLUS ACIDOPHILUS CAP (BACID) PO SCH ×2 (09:13→21:00)
--- NOTE | 2016-12-23 11:02 | IPN ---
DATE: 12/23/2016 SUBJECTIVE: The patient was seen and examined at the bedside today morning. He was laying in the bed. He is asymptomatic. Last 24 hour events were noted. The patient got transurethral resection of bladder tumor and evacuation of blood clots done yesterday. Biopsy was done. Continuous bladder irrigation (CBI) has been stopped. The patient just has a Smart catheter at this time. The patient continues to have bilateral nephrostomy tubes and his renal function is stable at this time. REVIEW OF SYSTEMS: The patient denies any fevers, chills, rigors, headache, nausea, vomiting, chest pain. He does report pain in abdomen and some pain at the nephrostomy tube sites. The rest of the review of systems is negative. OBJECTIVE: VITAL SIGNS: Temperature is 97.6 degrees Fahrenheit, blood pressure 170/90, pulse 93, respiratory rate of 17, saturating 99% on room air. INTAKE AND OUTPUT: Urine output recorded from the right-sided nephrostomy tube is 4.1 liters and from left-sided nephrostomy is only 20 mL. PHYSICAL EXAMINATION: GENERAL: The patient is awake, alert, oriented times three, laying in the bed in no apparent distress. HEAD/NECK: Extraocular muscles intact. Pupils equal, round, and reactive to light. Mucous membranes are moist. Neck is supple. There is no jugular venous distention (JVD). CARDIOVASCULAR: S1, S2. Regular rate. No murmur, rub, or gallop. RESPIRATORY: Chest is clear to auscultation bilaterally. Bilateral equal air entry. No rales or rhonchi. ABDOMEN: Soft. Positive bowel sounds. Mild tenderness to deep palpation in suprapubic region. GENITOURINARY: The patient has a Smart catheter and there is a small amount of blood tinged urine in the bag at this time. The patient has bilateral percutaneous nephrostomy tubes and mild costovertebral angle (CVA) tenderness on both sides. Left-sided nephrostomy bag is having bloody urine and right-sided nephrostomy bag has clear urine in the bag at this time. MUSCULOSKELETAL: No clubbing or cyanosis. Pulses are 2+. CENTRAL NERVOUS SYSTEM (RUG DYER HELPER): No focal neurological deficit. Power is 5/5 in all extremities. PSYCHIATRIC: Normal mood and affect. LABORATORY DATA: CBC showed a WBC of 8.7, hemoglobin 8.7 and platelets of 536. BMP showed sodium 142, potassium 4.6, chloride 111, bicarbonate 21, BUN 20, creatinine 2.2, calcium 8.3. CURRENT INPATIENT MEDICATIONS: The patient's medications are all reviewed by me. The patient is currently on 1/2 normal saline at 100 mL an hour. Fentanyl has been stopped. Percocet dose has been changed to every 4 hours. There is no other change in the medications today as compared with yesterday. ASSESSMENT: 61-year-old male with bilateral nephrostomy tubes secondary to bladder neck obstruction. He is status post transurethral resection of bladder tumor done on 12/22/2016. The patient also has atrophic left kidney. Nephrology service following the patient for management of acute kidney injury superimposed on chronic kidney disease. PLAN: 1. Acute kidney injury superimposed on chronic kidney disease. It was secondary to bladder outlet obstruction and hydronephrosis. The patient has bilateral percutaneous nephrostomies at this time. He is having post obstructive diuresis from the right-sided percutaneous nephrostomy. Continue the IV fluid hydration with 1/2 normal saline. Renal function is stable at this time. Creatinine is fluctuating around 2.2 at this time. 2. Transurethral resection of bladder tumor and evacuation of blood clot. The patient currently has a Smart catheter. Biopsy was sent. Pathology report is still pending. The rest of the management is as per urology service. 3. Acute blood loss anemia. The patient's hemoglobin was 8.7 this morning. He was given a unit of packed red blood cells (PRBC) transfusion. Continue to monitor for now. 4. Hypertension. Part of the high blood pressure is secondary to pain. He is also on IV fluid hydration secondary to post obstructive diuresis. Some of the blood pressure readings are in the 130s and 140s. I will continue the IV fluid hydration for one more day and after that fluids will be stopped and the patient will be encouraged to drink oral liquids.
--- NOTE | 2016-12-23 12:49 | IPNPDOC ---
Assessment/Plan Date Seen The patient was seen on 12/23/16. Plan/VTE VTE Prophylaxis Ordered?: Yes Plan/Urinary Catheter Reason for insertion/continuin: Acute obstruct/retention Subjective Review oF Systems Chief Complaint The patient is a 61-year-old male admitted with a reason for visit of hematuria (2 years); bladder tumor; urinary retention; ARF s/p bilateral NT; LK atrophic; DOC patient. Asymptomatic. Since admission (12/18/16), 5u pRBC. Cystoscopy, clot evacuation, TURBT (Button electrode), carrera (12/22/16). Carrera light pink. Comfortable. 93, 17, 170/90, 97.6f. Abdo: benign. Bilateral NT. Carrera minimal drainage. Left NT minimal drainage. Right NT 250cc/4hr. Urine culture (12/19/16) negative. (12/23/16) Hg 8.7 (stable), wbc 8.7, Cr 2.2 ( down). INR (12/18/16) 1.1. CT w/o IV (12/18/16) clot, BPH, LK atrophic, bilateral 4/4 hydronephrosis, retroperitoneal lymphadenopathy. A: Above. P: IV Zosyn. Carrera/NT to SD. Pathology review and prognosis will be addressed with Skye Stuart (Urology) and patient. Objective Vital Signs/I&O Vital Signs Date Time Temp Pulse Resp B/P (MAP) Pulse Ox O2 Delivery O2 Flow Rate FiO2 12/23/16 10:00 97.6 93 17 170/90 (116) 99 Room Air I&O- Last 24 Hours up to 6 AM 12/23/16 06:00 Intake Total 3210 ml Output Total 3865 ml Balance -655 ml Laboratory Data Labs 24H Laboratory Tests 2 12/22/16 21:37: Anion Gap 7L, Glomerular Filtration Rate 38.4L, Blood Urea Nitrogen 18, Creatinine 2.26H, Sodium Level 140, Potassium Level 4.6, Chloride Level 112H, Carbon Dioxide Level 21, Calcium Level 8.7L 12/23/16 05:50: Anion Gap 10, Glomerular Filtration Rate 38.2L, Blood Urea Nitrogen 20H, Creatinine 2.27H, Sodium Level 142, Potassium Level 4.6, Chloride Level 111H, Carbon Dioxide Level 21, Calcium Level 8.3L CBC/BMP Laboratory Tests 12/22/16 21:37 Red Blood Count 3.35 L, Mean Corpuscular Volume 84.9, Mean Corpuscular Hemoglobin 25.5 L, Mean Corpuscular Hemoglobin Concent 30.0 L, Red Cell Distribution Width 18.8 H, Calcium Level 8.7 L 12/23/16 05:50 Red Blood Count 3.35 L, Mean Corpuscular Volume 82.0, Mean Corpuscular Hemoglobin 25.9 L, Mean Corpuscular Hemoglobin Concent 31.6 L, Red Cell Distribution Width 18.7 H, Calcium Level 8.3 L Microbiology Microbiology 12/18/16 Blood Culture - Preliminary, Resulted No Growth after 72 hours. All specime... 12/22/16 Urine Culture, Received Pending 12/19/16 Anaerobic Culture - Final, Complete 12/19/16 Urine Culture - Final, Complete 12/19/16 Urine Culture - Final, Complete 12/19/16 Anaerobic Culture - Final, Complete 12/18/16 Urine Culture - Final, Complete BHAVNA RUBY MD Dec 23, 2016 12:49
--- NOTE | 2016-12-23 16:45 | IPN ---
DATE: 12/23/2016 Mr. Cannon is feeling well today. He has no complaints of pain for me. He is worried that there is not much urine draining from his bladder. The procedure was tolerated nicely last night. Temperature 97.6, pulse 93, respiratory rate 17, blood pressure 170/90, 99% on room air. Intake and output notable for a negative fluid balance of -2160, one bowel movement yesterday. He is awake, appropriately interactive, somewhat flattened affect. Mucous membranes moist. Neck supple. Breathing is symmetrical. I:E ratio is 1:3. Heart is distant sounding, normal S1, S2, not tachycardic. Abdomen soft, no suprapubic tenderness is noted. White cell count 8.7, hemoglobin 8.7, platelets of 536. BUN 20, creatinine 2.27. My assessment is as follows: This is a 61-year-old with acute renal failure in the setting of chronic kidney disease with acute blood loss anemia, ongoing hematuria in the setting of suspected bladder tumor and bladder outlet obstruction. Plan is as follows: 1. Acute blood loss anemia. This seems to have stabilized postoperatively. 2. Patient has a bladder malignancy which is significant. It is unclear what therapy will be needed from this point. Will await pathology results and then attempt to coordinate care with the retirement system based on the patient's desires. 3. Patient has resolving acute renal failure. Baseline creatinine is likely right around where he is now. Greatly appreciate Dr. Dsouza's assistance. 4. Infectious disease. Patient had fever, urinary obstruction, and elevated white cell count. Continues on broad-spectrum antibiotics, would complete a short course. 5. Patient has mechanical deep vein thrombosis (DVT) prophylaxis. 6. Patient has hypotension, which is variable, most likely related to pain and anxiety.
[2016-12-23] MEDS: PERCOCET 5MG/325MG TAB PO PRN ×2 (17:13→22:11)
[2016-12-24] MEDS: NS 0.45% 1,000 ML IV SCH (00:47)
[2016-12-24] MEDS: PIPERACILLIN/TAZOBACTAM SOD 2.25 GM in D5W MINI-BAG PLUS 50 ML IV SCH ×3 (00:47→17:59)
[2016-12-24 06:00] VITALS: BP 152/85
[2016-12-24 06:12] LABS: MEAN CORPUSCULAR HEMOGLOBIN 25.4 pg (27.0-33.0); MEAN CORPUSCULAR HGB CONC 30.2 g/dl (32.0-36.5); MEAN CORPUSCULAR VOLUME 83.9 fl (80.0-96.0); RED CELL DISTRIBUTION WIDTH 18.8 % (11.5-14.5); WHITE BLOOD COUNT 11.1 K/mm3 (4.0-10.0)
[2016-12-24 06:20] LABS: CALCIUM LEVEL 8.2 MG/DL (8.8-10.2); CREATININE FOR GFR 2.15 MG/DL (0.70-1.30); GLOMERULAR FILTRATION RATE 40.7 (>49); POTASSIUM SERUM 4.7 MEQ/L (3.5-5.1)
[2016-12-24] MEDS: LACTOBACILLUS ACIDOPHILUS CAP (BACID) PO SCH ×2 (09:12→20:24)
[2016-12-24] MEDS: TAMSULOSIN 0.4 MG CAP PO SCH (09:12)
[2016-12-24] MEDS: PERCOCET 5MG/325MG TAB PO PRN ×3 (09:13→20:26)
[2016-12-24] MEDS: NICOTINE 14 MG/24 HR TRANSDERMAL TD SCH (09:14)
[2016-12-24 10:00] VITALS: BP 160/80
--- NOTE | 2016-12-24 11:55 | IPN ---
DATE OF SERVICE: 12/24/2016 SUBJECTIVE: The patient was seen and examined at the bedside today morning. Patient reports that he is feeling better. Pathology report is still pending. Renal function continues to slightly improve. Patient still has a good urine output from the right sided percutaneous nephrostomy. Patient is slightly hypertensive today. REVIEW OF SYSTEMS: The patient denies any fevers, chills, rigors, headache, nausea, vomiting, chest pain, or shortness of breath. He does report pain and sensitivity at the percutaneous nephrostomy site and he reports mild pain at the suprapubic site. The rest of the review of systems is negative. OBJECTIVE: VITAL SIGNS: Temperature is 98.9 degrees Fahrenheit, blood pressure 160/80, pulse 93, respiratory rate of 16, saturating 98% on room air. INTAKE AND OUTPUT: Urine output recorded from the right percutaneous nephrostomy is 3.1 liters yesterday, 2.2 liters so far today since overnight . There is minimal urine output from the left-sided nephrostomy. PHYSICAL EXAMINATION: GENERAL: The patient is awake, alert, oriented times three, laying in the bed in no apparent distress. HEAD/NECK: Extraocular muscles intact. Pupils equal, round, and reactive to light. Mucous membranes are moist. Neck is supple. There is no jugular venous distention (JVD). CARDIOVASCULAR: S1, S2. Regular rate. No murmur, rub, or gallop. RESPIRATORY: Chest is clear to auscultation bilaterally. Bilateral equal air entry. No rales or rhonchi. ABDOMEN: Soft. Positive bowel sounds. Mild costovertebral angle (CVA) tenderness at the percutaneous nephrostomy site bilaterally and mild suprapubic tenderness. GENITOURINARY: The patient has a Smart catheter at this time. Very small amount of blood tinged urine was found in the catheter. In the inspected percutaneous nephrostomy his right nephrostomy is draining well, clear urine. Left nephrostomy has about 10 mL of blood tinged urine in the bag. MUSCULOSKELETAL: No clubbing or cyanosis. Pulses are 2+. CENTRAL NERVOUS SYSTEM (UNIT MANAGER RN): No focal neurological deficit. Power is 5/5 in all extremities. PSYCHIATRIC: Normal mood and affect. LABORATORY DATA: CBC showed a WBC of 11.1, hemoglobin 8.4 and platelets of 588. BMP showed sodium 146, potassium 4.7, chloride 116, bicarbonate 22, BUN 18, creatinine 2.1, it was 2.2 yesterday, calcium 8.2. CURRENT INPATIENT MEDICATIONS: The patient's medications were all reviewed by me. I stopped his IV fluids. He continues to be on IV antibiotics at this time. ASSESSMENT: 61-year-old male with bilateral nephrostomy tubes secondary to bladder neck obstruction and bilateral hydronephrosis. Status post transurethral resection of bladder tumor done on 12/22/2016. The patient also has atrophic left kidney. PLAN: 1. Acute kidney injury superimposed on chronic kidney disease. It is secondary to atrophic left kidney and bilateral obstruction because of hematuria and the bladder tumor. Continue the percutaneous nephrostomy as per urology. Left nephrostomy tube might be taken out because left kidney is nonfunctional. 2. Status post transurethral resection of bladder tumor and evacuation of blood clot. The patient currently has a Smart catheter. Bladder tumor pathology is pending at this time. The rest of the management as per urology. 3. Hypertension. Patient was still on IV fluids, IV fluids have been stopped at this time. Patient is not on any antihypertensives at this time. If needed patient can be started on amlodipine. 4. Blood loss anemia. The patient's hemoglobin is 8.4 which is optimal at this time. Transfused as needed for hemoglobin dropped below 8. Patient's renal function continues to slowly improve. He has bilateral nephrostomy tubes at this time. Urology is already on board. Nephrology service will sign off at this moment. Please call nephrology service as needed for any help in the management of this patient. Plan of care was discussed with Dr. Kenroy Collins.
[2016-12-24 14:00] VITALS: BP 162/80
--- NOTE | 2016-12-24 14:12 | IPN ---
DATE: 12/24/2016 He has no complaints of chest pain. No shortness of breath. He does have some back pain associated with the nephrostomy sites. Finding it difficult to sleep because he does not get comfortable. Temperature 98.9, pulse 93, respiratory rate 16, blood pressure 160/80, 98% on room air. Positive fluid balance of 845. Two bowel movements noted yesterday. He is awake, appropriately interactive, pleasantly conversant. No acute distress. Mucous membranes moist. Neck supple. Breathing is symmetrical and rested. Heart has regular rate and rhythm. White cell count 11.1, hemoglobin 8.4, platelets of 588. Sodium 146, potassium 4.7, chloride 116, carbon dioxide 22, BUN 18, creatinine 2.15. My assessment is as follows: This is a 61-year-old with acute renal failure with resolving hematuria in the setting of suspected bladder tumor and bladder outlet obstruction. Plan is as follows: 1. The patient's acute blood loss anemia seems to have stabilized. No role for transfusion today. 3. Patient has a bladder malignancy, pathology pending. We will discuss further care with oncology and urology when pathology is available. 4. Patient has resolving acute renal failure. Again, he is probably still quite close to his baseline. I did discuss the case in person with Dr. Dsouza, who can likely followup with the patient as needed. 5. Infectious disease. Patient has had fever, urinary obstruction, and elevated white cell count. Continue for a total of 7 days on broad-spectrum antibiotics. 5. Patient has mechanical deep vein thrombosis (DVT) prophylaxis. 6. Patient has a complicated social situation as he is an inmate at [facility].
[2016-12-24 18:00] VITALS: BP 162/80
[2016-12-24 22:00] VITALS: BP 155/86
[2016-12-25] VITALS (7 sets, daily range): BP systolic 122–182; BP diastolic 72–110
[2016-12-25] MEDS: PIPERACILLIN/TAZOBACTAM SOD 2.25 GM in D5W MINI-BAG PLUS 50 ML IV SCH ×3 (00:53→16:42)
[2016-12-25] MEDS: PERCOCET 5MG/325MG TAB PO PRN ×3 (05:48→22:51)
[2016-12-25 06:53] LABS: MEAN CORPUSCULAR HEMOGLOBIN 25.8 pg (27.0-33.0); MEAN CORPUSCULAR HGB CONC 30.6 g/dl (32.0-36.5); MEAN CORPUSCULAR VOLUME 84.3 fl (80.0-96.0); WHITE BLOOD COUNT 9.5 K/mm3 (4.0-10.0)
[2016-12-25 07:08] LABS: CALCIUM LEVEL 8.9 MG/DL (8.8-10.2); CREATININE FOR GFR 2.2 MG/DL (0.70-1.30); GLOMERULAR FILTRATION RATE 39.6 (>49); POTASSIUM SERUM 4.7 MEQ/L (3.5-5.1)
[2016-12-25] MEDS: TAMSULOSIN 0.4 MG CAP PO SCH (09:33)
[2016-12-25] MEDS: LACTOBACILLUS ACIDOPHILUS CAP (BACID) PO SCH ×2 (09:33→20:55)
[2016-12-25] MEDS: NICOTINE 14 MG/24 HR TRANSDERMAL TD SCH (09:34)
--- NOTE | 2016-12-25 18:50 | IPN ---
DATE: 12/25/2016 The patient is feeling well. He has no complaints of pain today. No chest pain, no shortness of breath. He is tolerating a diet. He is passing blood through his Smart catheter. Temperature 98.3, pulse 105, respiratory rate 18, blood pressure 182/110, 99% on room air. Intake and output notable for a fluid balance of -710. He is awake, appropriately interactive, pleasantly conversant, in no acute distress. Mucous membranes moist. Neck supple. Breathing is symmetrical and rested. Heart is in a regular rate and rhythm. Abdomen is soft, doughy, nontender. He has two nephrostomy tubes in place and a Smart catheter. White cell count 9.5, hemoglobin 8.6 and platelets of 730. Sodium is 143, BUN 16, creatinine 2.2. My assessment is as follows: This is a 61-year-old gentleman with advanced bladder tumor resulting in acute renal failure. Plan is as follows: 1. Oncologic. Discussed the case by phone with Dr. Stuart. Plan is to take the patient to surgery tomorrow for further debridement and to obtain further pathologic specimens. Will defer management to Dr. Stuart. 2. The patient has hypertension. Will start Norvasc with hold parameters. 3. The patient has chronic kidney disease, stage III, had acute renal failure which has resolved and hyperkalemia which has resolved. 4. Infectious disease. The patient had fever, urinary obstruction and elevated white cell count, continuing on a total of 7 days of broad-spectrum antibiotics. 5. The patient has mechanical deep vein thrombosis (DVT) prophylaxis. 6. The patient has a complicated social situation as he is an inmate at the [facility]. I have a phone call out to a nurse lands resource manager to help arrange plans for his ultimate treatment and disposition.
[2016-12-25] MEDS: amLODIPine 5 MG TAB PO SCH (20:55)
[2016-12-25] MEDS: diphenhydrAMINE 25 MG CAP PO PRN (22:50)
[2016-12-26] VITALS (9 sets, daily range): BP systolic 120–177; BP diastolic 70–98
[2016-12-26] MEDS: PIPERACILLIN/TAZOBACTAM SOD 2.25 GM in D5W MINI-BAG PLUS 50 ML IV SCH ×3 (00:11→17:31)
[2016-12-26] MEDS ORDERED: NS 1,000 ML IV SCH (06:00)
[2016-12-26] MEDS: PERCOCET 5MG/325MG TAB PO PRN ×2 (06:00→10:21)
[2016-12-26 06:59] LABS: MEAN CORPUSCULAR HEMOGLOBIN 26.1 pg (27.0-33.0); MEAN CORPUSCULAR HGB CONC 31.8 g/dl (32.0-36.5); MEAN CORPUSCULAR VOLUME 82.1 fl (80.0-96.0); WHITE BLOOD COUNT 8.3 K/mm3 (4.0-10.0)
[2016-12-26 07:07] LABS: CALCIUM LEVEL 8.9 MG/DL (8.8-10.2); CREATININE FOR GFR 2.06 MG/DL (0.70-1.30); GLOMERULAR FILTRATION RATE 42.7 (>49); POTASSIUM SERUM 4.2 MEQ/L (3.5-5.1)
[2016-12-26] MEDS: amLODIPine 5 MG TAB PO SCH ×2 (09:02→20:51)
[2016-12-26] MEDS: TAMSULOSIN 0.4 MG CAP PO SCH (09:02)
[2016-12-26] MEDS: NICOTINE 14 MG/24 HR TRANSDERMAL TD SCH (09:03)
[2016-12-26] MEDS: LACTOBACILLUS ACIDOPHILUS CAP (BACID) PO SCH ×2 (09:03→20:51)
[2016-12-26] MEDS ORDERED: MIDAZOLAM INJ 2 MG/2 ML VIAL (J2250) As Ordered ONE (10:58)
[2016-12-26] MEDS ORDERED: ONDANSETRON 4MG/2ML VIAL (J2405) As Ordered ONE (10:58)
[2016-12-26] MEDS ORDERED: ROCURONIUM BROMIDE 50 MG/5 ML VIAL/SYRINGE As Ordered ONE (10:58)
[2016-12-26] MEDS ORDERED: LIDOCAINE 2% INJ 100 MG/5 ML SDV (FOR ANES.) As Ordered ONE (10:58)
[2016-12-26] MEDS ORDERED: PROPOFOL 200 MG/20 ML VIAL As Ordered ONE (10:58)
[2016-12-26] MEDS ORDERED: fentaNYL 100 MCG/2 ML INJECTION (J3010) As Ordered ONE ×2 (10:58→12:35)
[2016-12-26] MEDS ORDERED: CONRAY-60 60% 50ML VIAL (Q9961) As Ordered ONE ×3 (11:41→12:48)
[2016-12-26] MEDS ORDERED: LevoFLOXacin(LEVAQUIN)500 MG/100 ML BAG (J1956) As Ordered ONE (11:54)
[2016-12-26] MEDS ORDERED: dexameTHASONE 4 MG/ML 1ML VIAL (J1100) As Ordered ONE (12:20)
[2016-12-26] MEDS ORDERED: METHYLENE BLUE 0.5% (5MG/ML) 10 ML AMP (PROVAYBLUE)(Q9968 PER 1MG) As Ordered ONE ×2 (12:33→12:49)
[2016-12-26] MEDS ORDERED: ESMOLOL INJ 100MG/10ML VIAL As Ordered ONE (12:35)
[2016-12-26] MEDS ORDERED: HYDROmorphone HCL 2 MG/ML 1ML VIAL (J1170) As Ordered ONE (13:03)
--- NOTE | 2016-12-26 15:27 | IPN ---
DATE: 12/26/2016 Mr. Cannon is going to the operating room (OR) today, I see him prior to him going downstairs. He is not complaining of pain, chest pain, or shortness of breath. He is tolerating a diet yesterday, of course is nothing by mouth today. He is passing blood through is Smart and a great deal of urine through his right nephrostomy tube. Very little or none through this left. Temperature 98.1, pulse 84, respiratory rate 18, blood pressure 168/92. Intake and output notable for a negative fluid balance of -280. Weight is 68.8 kilos. He is awake, appropriately interactive, pleasantly conversant, thin appearing. Mucous membranes moist. Neck supple. Breathing is symmetrical and rested. Heart is in a regular rate and rhythm. Abdomen is soft, doughy, active bowel sounds. White cell count 8.3, hemoglobin 8.3, platelets of 790. BUN 17, creatinine 2.06. My assessment is as follows: This is a 61-year-old gentleman with advanced bladder tumor resulting in acute renal failure. Plan is as follows: 1. Oncologic. Plan is to take the patient for further debridement today, stent placement, and biopsy. It is Dr. Stuart's opinion at this point the patient will need four rounds of chemotherapy and a cystectomy and then ileoconduit and this will likely need to happen at a different facility. In the meantime, we are going to attempt to obtain further biopsy and place stents if able to simplify his management. 2. The patient has hypertension. Blood pressure is still slightly elevated. We will consider increasing blood pressure control postoperatively. 3. The patient has chronic kidney disease, stage III, had acute renal failure and hyperkalemia which has resolved. 4. Infectious disease. The patient had fever, urinary obstruction and elevated white cell count. Cultures have been negative. Plan had been for a total of 7 days of broad-spectrum antibiotics which would be over today, but should likely continue through the operating room (OR) today and into tomorrow. 5. The patient has mechanical deep vein thrombosis (DVT) prophylaxis. 6. The patient has a complicated social situation as I had to discuss this case by phone with [place] Koenig and possibilities of transverse seem to include [facility] or [facility] in [place], [place]. We have further phone calls out to clarify what would be a better choice based on chemotherapy, I have presented it to our case management staff for assistance in this.
[2016-12-26] MEDS ORDERED: SUGAMMADEX SODIUM 500 MG/5 ML VIAL (BRIDION) As Ordered ONE (15:32)
--- NOTE | 2016-12-26 15:41 | REP ---
C-ARM VIEWS DURING URETERAL STENT PLACEMENT: Four C-arm views are performed. There is injection of contrast into the right ureter demonstrating mild right hydroureteronephrosis. There is a right nephrostomy tube. There is placement of a right ureteral stent with the proximal end coiled in the region of the right renal pelvis and the distal end coiled in the region of the urinary bladder. Left nephrostomy tube is also noted. There is injection of contrast into a moderately dilated pelvicalyceal system on the left. There is placement of a left ureteral catheter with the proximal end coiled in the renal pelvis and the distal end coiled in the region of the urinary bladder. 2 minutes 41 seconds fluoroscopy time utilized. Signed by Sean Ladd MD 12/27/2016 05:34 P
[2016-12-26] MEDS ORDERED: ONDANSETRON 4MG/2ML VIAL (J2405) IV PRN ×2 (15:45→16:45)
[2016-12-26] MEDS ORDERED: fentaNYL 100 MCG/2 ML INJECTION (J3010) IV PRN (15:45)
[2016-12-26] MEDS ORDERED: LR 1,000 ML IV SCH (15:45)
[2016-12-26 16:26] LABS: CREATININE FOR GFR 2.07 MG/DL (0.70-1.30); GLOMERULAR FILTRATION RATE 42.5 (>49); POTASSIUM SERUM 4.4 MEQ/L (3.5-5.1)
[2016-12-26 17:03] LABS: MEAN CORPUSCULAR HEMOGLOBIN 26.2 pg (27.0-33.0); MEAN CORPUSCULAR HGB CONC 31.4 g/dl (32.0-36.5); MEAN CORPUSCULAR VOLUME 83.6 fl (80.0-96.0); RED CELL DISTRIBUTION WIDTH 18.8 % (11.5-14.5); WHITE BLOOD COUNT 10.5 K/mm3 (4.0-10.0)
[2016-12-26] MEDS: KCL 20MEQ IN D5/0.45NS 1000ML 1,000 ML IV SCH (17:32)
[2016-12-26] MEDS ORDERED: PANTOPRAZOLE 40MG INJ (PROTONIX) (C9113) IV SCH (18:00)
[2016-12-26] MEDS: MORPHINE 4 MG/ML 1ML SYRINGE IV PRN ×2 (20:52→23:33)
[2016-12-27] VITALS (8 sets, daily range): BP systolic 129–148; BP diastolic 73–89
[2016-12-27] MEDS ORDERED: PERCOCET 5MG/325MG TAB PO ONE (01:00)
[2016-12-27] MEDS: PIPERACILLIN/TAZOBACTAM SOD 2.25 GM in D5W MINI-BAG PLUS 50 ML IV SCH ×3 (01:09→16:29)
[2016-12-27] MEDS: KCL 20MEQ IN D5/0.45NS 1000ML 1,000 ML IV SCH (01:10)
[2016-12-27] MEDS: diphenhydrAMINE 25 MG CAP PO PRN ×2 (02:38→20:07)
[2016-12-27 07:11] LABS: MEAN CORPUSCULAR HEMOGLOBIN 25.9 pg (27.0-33.0); MEAN CORPUSCULAR HGB CONC 30.8 g/dl (32.0-36.5); MEAN CORPUSCULAR VOLUME 84.3 fl (80.0-96.0); RED CELL DISTRIBUTION WIDTH 19.1 % (11.5-14.5); WHITE BLOOD COUNT 13.8 K/mm3 (4.0-10.0)
[2016-12-27 07:23] LABS: CALCIUM LEVEL 9.1 MG/DL (8.8-10.2); CREATININE FOR GFR 2.61 MG/DL (0.70-1.30); GLOMERULAR FILTRATION RATE 32.5 (>49); POTASSIUM SERUM 4.6 MEQ/L (3.5-5.1)
--- NOTE | 2016-12-27 07:56 | RO ---
DATE OF PROCEDURE: 12/18/2016 PREPROCEDURE DIAGNOSES: Bladder neoplasm and bilateral hydronephrosis. POSTPROCEDURE DIAGNOSES: Bladder neoplasm and bilateral hydronephrosis. PROCEDURE: Cystoscopy. Exam under anesthesia. Transurethral resection of bladder tumor bipolar (TURBT) Bilateral antegrade nephrostograms. Bilateral JJ stents, #6-Dutch Gaastra Cook placement. SURGEON: Dr. Vaibhav Stuart. TRAVEL PTA: None. ANESTHESIA: General. COMPLICATIONS: None. ESTIMATED BLOOD LOSS: N/A FINDINGS: More than 5 cm bladder neoplasms and large papillary tumors obstructing the bladder neck trigone and left lateral wall and right lateral wall of the bladder. The patient also had bilateral nephrostomy tubes and bilateral hydronephrosis. HISTORY OF PRESENT ILLNESS: This is a 61-year-old male patient that is in the hospital under the hospitalist service. The patient came to the emergency department at [facility] due to a acute renal failure over chronic renal failure and hematuria. The patient had bilateral nephrostomy tubes. His creatinine has improved to a level of 2.2. The patient, over the weekend, had a cystoscopy plus clot evacuation, plus bladder biopsy. 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 However, there is no evidence of muscle resection. For this reason and for the reason that the patient is actually having active bleeding with clots and continued hematuria, we have decided to take him to the operating room for a second look, cystoscopy, possible bilateral double J stent placement and clot evacuation and TURBT. DESCRIPTION OF PROCEDURE: In a patient under general anesthesia in supine modified lithotomy position, after prepping and draping the area of concern, which included the entire genitalia and abdomen, we introduced a #21-Dutch cystoscope with 30-degree lens under videoendoscopic guidance. The fossa navicularis, penile urethra, bulbar urethra, membranous urethra and prostatic urethra was essentially normal. The bladder neck was invaded by bladder tumor. The trigone could not be observed at all. The lateral wall was full of tumor also. The left lateral wall was full of tumor. There was also clots in the bladder. For this reason, we grabbed the [employer] evacuator and took all the clots out. At that moment in time, we decided to do bilateral antegrade nephrostograms with a mixture of contrast and methylene blue. We could actually see methylene blue coming out from the right ureteral orifice. However, we could not evidence where the ureteral orifice was because it was covered completely by tumor. At that moment in time, we decided to actually placed the resectoscope by taking out the cystoscope and placing the resectoscope. Under normal saline, we did a bipolar TURBT first of the tumor in the bladder neck. We resected the bladder tumor neck and we then took also deep resections of the bladder tumor neck and then we resected the bladder trigone also. At that moment in time, we could visualize the indigo carmine coming out from the right ureteral orifice. In that moment in time, we completed the resection of the trigone with TURBT and took the specimens out. We classified the specimens as a bladder tumor from the bladder neck and then deep resections of this one and then of the trigone. We then proceeded to actually do resections of the bladder tumors in the left lateral wall. We send these specimens also separately and also on the right lateral wall. We also send these in separate containers. After fulgurating all the bleeding vessels, we could actually evidence the methylene blue coming out from the right ureteral orifice. At that moment in time, we took the resectoscope out and placed the cystoscope. Placed a #5-Dutch Pollack catheter into the right distal ureter. We then placed a sensor guidewire up to the kidney and once it was in the kidney, we took the Pollack catheter out and placed a #6-Dutch Gaastra Cook stent to the kidney. Once it was in good position, we took the guidewire out. We could see the curl in the kidney and the curl in the bladder. We then proceeded to actually try to identify the left ureteral orifice. We resected the trigone and the left side of the bladder. At that moment in time, we also performed an antegrade nephrostogram with a mixture of contrast and methylene blue. We could see a jet of methylene blue coming out from the left ureteral orifice, which actually was resected. At that moment in time, it was very difficult to actually catheterize the left ureteral orifice. For this reason, we tried with multiple filiform guidewires, curved guidewires, and sensor guidewires. The sensor guidewire curve could actually pass. At that moment in time, we passed the Pollack catheter up to the kidney and then placed the guidewire and took out the Pollack catheter out. We placed a #6-Dutch [employer] stent following the guidewire up to the kidney and then took the guidewire out. After this, we could see that the kidney also was draining on the left side. We then proceeded to actively finalize our resection. We resected about 80% of the bladder, which was full of tumors. At that moment in time, we fulgurated all the bleeding vessels and with the electrocoagulator, we took all the chips of bladder tumors out. We sent four different types of specimen for permanent pathology analysis. At that moment in time, we took the resectoscope and after securing hemostasis and placed a Smart catheter #20-Dutch, three-way and placed it to irrigation and gravity. PLAN: The patient will pass to recovery then to the floor. We have clamped the bilateral nephrostomy tubes. He has bilateral stents and if in 24-48 hours, his creatinine remains stable. We will discontinue the nephrostomy tubes and the patient will stay with the double J stents that have to be exchanged every 3 months. The Smart catheter will need to remain for 5 days. At that moment in time, we will give a voiding trial since we resected 80% of the bladder. We think this is a very large bladder tumor invading muscle and also having invasion of the trigone. For his reason, the patient will need neoadjuvant chemotherapy and the possibility of a radical cystoprostatectomy plus urinary diversion to be done after neoadjuvant chemotherapy. Will discuss final plan of therapy after pathology has been confirmed. LENNOX
--- NOTE | 2016-12-27 08:04 | IPNPDOC ---
Text Note Date of Service The patient was seen on 12/27/16. NOTE Subjective: Patient seen and examined at bedside. Overnight events significant for back/ flank pain, with some relief with percocet. Still complains of pain this morning, no other medical complaints. Objective: General: NAD HEENT: NC/AT, EOMI Lungs: CTA B/L Heart: +S1S2, RRR Abd: soft, NT, +BS, carrera catheter in place, draining pink colored urine Ext: B/L flank/CVA tenderness, bandages in place b/l flank, area is C/D/I Psych: AAOx3 Assessment/Plan: This is a 61-year-old gentleman with advanced bladder tumor resulting in acute renal failure. 1. Oncologic/urology - s/p further debridement, stent placement, and biopsy - follow as per urology - Dr. Stuart - patient will need four rounds of chemotherapy and a cystectomy and then ileoconduit - recommending another facility - biopsy results pending - patient prefers [facility] as he is from [place] 2. HTN - continue to follow clinically 3. CKD stage III - had acute renal failure and hyperkalemia which has resolved. 4. Infectious disease. The patient had fever, urinary obstruction and elevated white cell count. Discuss further with urology - continue antibiotics for now. 5. The patient has mechanical deep vein thrombosis (DVT) prophylaxis. Disposition: The patient has a complicated social situation; has been discussed with [place] Koenig and possibilities of transfer to include [facility] or [facility] in [place], [place]. Pending further input. VS,Fishbone, I+O VS, Fishbone, I+O Laboratory Tests 12/26/16 15:51 Red Blood Count 3.33 L, Mean Corpuscular Volume 83.6, Mean Corpuscular Hemoglobin 26.2 L, Mean Corpuscular Hemoglobin Concent 31.4 L, Red Cell Distribution Width 18.8 H, Calcium Level 9.0 12/27/16 06:23 Red Blood Count 3.13 L, Mean Corpuscular Volume 84.3, Mean Corpuscular Hemoglobin 25.9 L, Mean Corpuscular Hemoglobin Concent 30.8 L, Red Cell Distribution Width 19.1 H, Calcium Level 9.1 Vital Signs Date Time Temp Pulse Resp B/P (MAP) Pulse Ox O2 Delivery O2 Flow Rate FiO2 12/27/16 06:00 98.7 89 18 144/78 (100) 99 Room Air I&O- Last 24 Hours up to 6 AM 12/28/16 06:00 Intake Total 650 ml Output Total 625 ml Balance 25 ml ACE MAE MD Dec 27, 2016 08:04
[2016-12-27] MEDS: LACTOBACILLUS ACIDOPHILUS CAP (BACID) PO SCH ×2 (08:33→20:05)
[2016-12-27] MEDS: PANTOPRAZOLE 40MG TAB (PROTONIX) PO SCH (08:34)
[2016-12-27] MEDS: TAMSULOSIN 0.4 MG CAP PO SCH (08:34)
[2016-12-27] MEDS: amLODIPine 5 MG TAB PO SCH ×2 (08:35→20:07)
[2016-12-27] MEDS: NICOTINE 14 MG/24 HR TRANSDERMAL TD SCH (08:36)
[2016-12-27] MEDS: D5W/0.45% SODIUM CHLORIDE 1,000 ML IV SCH ×2 (08:37→20:00)
[2016-12-27] MEDS: PERCOCET 5MG/325MG TAB PO PRN ×2 (15:04→20:08)
[2016-12-28] MEDS: PIPERACILLIN/TAZOBACTAM SOD 2.25 GM in D5W MINI-BAG PLUS 50 ML IV SCH ×3 (01:33→17:35)
[2016-12-28 02:00] VITALS: BP 130/82
[2016-12-28 06:00] VITALS: BP 150/83
[2016-12-28 06:27] LABS: MEAN CORPUSCULAR HGB CONC 31.5 g/dl (32.0-36.5); MEAN CORPUSCULAR VOLUME 82.4 fl (80.0-96.0); RED CELL DISTRIBUTION WIDTH 19.3 % (11.5-14.5); WHITE BLOOD COUNT 11.4 K/mm3 (4.0-10.0)
[2016-12-28 06:41] LABS: CALCIUM LEVEL 8.4 MG/DL (8.8-10.2); CREATININE FOR GFR 2.02 MG/DL (0.70-1.30); GLOMERULAR FILTRATION RATE 43.7 (>49); POTASSIUM SERUM 4.3 MEQ/L (3.5-5.1)
[2016-12-28] MEDS: D5W/0.45% SODIUM CHLORIDE 1,000 ML IV SCH (07:43)
--- NOTE | 2016-12-28 07:53 | IPNPDOC ---
Text Note Date of Service The patient was seen on 12/28/16. NOTE Subjective: Patient seen and examined at bedside. No new medical complaints, states his back pain is improving. Objective: General: NAD, sitting in chair comfortably HEENT: NC/AT, EOMI Lungs: CTA B/L Heart: +S1S2, RRR Abd: soft, NT, +BS, carrera catheter in place, draining pink colored urine Ext: B/L flank/CVA tenderness, bandages in place b/l flank, area is C/D/I Psych: AAOx3 Assessment/Plan: This is a 61-year-old gentleman with advanced bladder tumor resulting in acute renal failure. 1. Oncologic/urology - s/p further debridement, bilateral double J stent placement, and biopsy - follow as per urology - Dr. Stuart - patient will need chemotherapy and a cystectomy and then ileoconduit - recommending another facility - repeat biopsy results pending - previous biopsy shows high grade urothelial carcinoma with no viable tissue to assess invasion - left nephrostomy tube removed - d/w Dr. Aleman at [facility] - transfer refused - recommended peer to peer discussion with urology or oncology - in house oncology consultation pending - d/w dr. stuart - pending oncology eval - will need chemo prior to surgery, anticipating 3-5 days before removing stents - if no response from chemo, then no surgery 2. HTN - continue to follow clinically 3. CKD stage III - had acute renal failure and hyperkalemia which has resolved. 4. Infectious disease - patient had fever, urinary obstruction and elevated white cell count - leukocytosis improving - discuss further with urology - continue antibiotics for now. 5. Acute blood loss anemia - from hematuria - transfuse 2 units PRBC today - continue daily CBC 6. The patient has mechanical deep vein thrombosis (DVT) prophylaxis. Disposition: The patient has a complicated social situation. Discussed with Dr. Aleman at [facility], and transfer was refused - recommended further discussion between urologists and/or oncologists. VS,Fishbone, I+O VS, Fishbone, I+O Laboratory Tests 12/28/16 06:08 Red Blood Count 2.77 L, Mean Corpuscular Volume 82.4, Mean Corpuscular Hemoglobin 26.0 L, Mean Corpuscular Hemoglobin Concent 31.5 L, Red Cell Distribution Width 19.3 H, Calcium Level 8.4 L Vital Signs Date Time Temp Pulse Resp B/P (MAP) Pulse Ox O2 Delivery O2 Flow Rate FiO2 12/28/16 06:00 99.2 84 17 150/83 (105) 98 Room Air I&O- Last 24 Hours up to 6 AM 12/29/16 06:00 Intake Total 680 ml Balance 680 ml ACE MAE MD Dec 28, 2016 07:53
[2016-12-28] MEDS: PANTOPRAZOLE 40MG TAB (PROTONIX) PO SCH (09:40)
[2016-12-28] MEDS: TAMSULOSIN 0.4 MG CAP PO SCH (09:40)
[2016-12-28] MEDS: LACTOBACILLUS ACIDOPHILUS CAP (BACID) PO SCH ×2 (09:41→21:04)
[2016-12-28] MEDS: amLODIPine 5 MG TAB PO SCH ×2 (09:41→21:06)
[2016-12-28] MEDS: NICOTINE 14 MG/24 HR TRANSDERMAL TD SCH (09:42)
[2016-12-28] MEDS: PERCOCET 5MG/325MG TAB PO PRN ×2 (12:29→21:05)
[2016-12-28 14:00] VITALS: BP 130/80
--- NOTE | 2016-12-28 17:41 | CR ---
DATE OF CONSULTATION: 12/28/2016 New patient consult. REASON FOR REFERRAL: Locally advanced bladder cancer. HISTORY OF PRESENT ILLNESS: Mr. Cannon is a 61-year-old man who is currently admitted for hematuria. He had a CT scan of the abdomen and pelvis, and this showed a severe enlarged prostate gland with extension into the bladder, causing bilateral hydronephrosis as well as atrophic left kidney. There was also associated significant pelvic and retroperitoneal adenopathy. He had a cystoscopy, transurethral resection of bladder tumor, bilateral antegrade nephrostograms, and bilateral JJ stents. A bladder neoplasm was seen with biopsy showing fragments of high-grade urothelial carcinoma. The transurethral resection of the bladder tumor (TURBT) showed numerous fragments of high-grade urothelial carcinoma with extensive necrosis and muscle invasion. He was assessed as not a candidate for surgery at this time, and Dr. Stuart recommended consultation with medical oncology for possible neoadjuvant chemotherapy. PAST MEDICAL HISTORY: Hypertension. MEDICATIONS: Lisinopril, Flomax, multivitamin, loratadine. FAMILY HISTORY: His father had lung cancer. SOCIAL HISTORY: He is presently incarcerated at [facility]. He is a smoker for at least 40 years, up to one pack per day. He denies drinking alcoholic beverages. No known drug allergies. PHYSICAL EXAMINATION: He was seated comfortably in the bed, not in distress. Lungs were clear. No rales, no rhonchi, no wheeze. S1, S2, regular. Abdomen was soft, nontender. Positive bowel sounds. No swelling. No calf tenderness. IMPRESSION AND PLAN: Mr. Cannon is a 61-year-old man with a locally advanced urothelial carcinoma of the bladder. A CT scan showed significant pelvic and retroperitoneal adenopathy as well as extension into the prostate gland. He currently has a compromised renal function with a creatinine level of 2.02 mg/dL. He was recommended for neoadjuvant chemotherapy by Dr. Vaibhav Stuart. I discussed with Mr. Cannon that for locally advanced bladder cancer, neoadjuvant chemotherapy has been shown to be of benefit. Ordinarily, the most effective treatment is with cisplatin chemotherapy; however, because of his kidney dysfunction, this would not be a prudent option. We can substitute cisplatin with carboplatin chemotherapy, although this is not as effective as cisplatin chemotherapy. The regimen would be carboplatin/gemcitabine chemotherapy with risks that include nausea, vomiting, bone marrow suppression with risk of infection, allergic reactions, among others. We would give the chemotherapy for at least 3-4 months, and in between he would be assessed for response to treatment. At the end of the 3-4 months, he would be evaluated for surgery. I also discussed that sometimes chemotherapy does not cause a shrinkage, and also that it can carry with it significant toxicities. Mr. Cannon himself was amenable to proceeding with the treatment; however, on discussion with the correctional officers who were with him, it seemed that it would be a problem for us to treat him on an outpatient basis. Patients who are incarcerated are usually transferred to a hospital with a senior care diehl for their treatments, if the planned treatments are going to be on a chronic basis. I have conveyed the above discussion with Dr. Henry, the hospitalist. I am not arranging an appointment to start him on chemotherapy, as I expect him to be transferred to [facility] [place] or [facility] for his treatments. Thank you very much for this referral. cc: MD LENNOX Wong
[2016-12-28] MEDS: diphenhydrAMINE 25 MG CAP PO PRN (21:04)
[2016-12-28 22:00] VITALS: BP 153/84
[2016-12-29] MEDS: PIPERACILLIN/TAZOBACTAM SOD 2.25 GM in D5W MINI-BAG PLUS 50 ML IV SCH ×3 (01:20→16:44)
[2016-12-29] MEDS: D5W/0.45% SODIUM CHLORIDE 1,000 ML IV SCH ×2 (05:25→16:43)
[2016-12-29] MEDS: PERCOCET 5MG/325MG TAB PO PRN ×3 (05:25→21:11)
[2016-12-29 06:00] VITALS: BP 162/87
[2016-12-29 06:13] LABS: MEAN CORPUSCULAR HEMOGLOBIN 26.4 pg (27.0-33.0); MEAN CORPUSCULAR HGB CONC 32.1 g/dl (32.0-36.5); MEAN CORPUSCULAR VOLUME 82.2 fl (80.0-96.0); RED CELL DISTRIBUTION WIDTH 18.6 % (11.5-14.5); WHITE BLOOD COUNT 9.3 K/mm3 (4.0-10.0)
[2016-12-29 06:29] LABS: CREATININE FOR GFR 1.89 MG/DL (0.70-1.30); GLOMERULAR FILTRATION RATE 47.2 (>49); POTASSIUM SERUM 4.1 MEQ/L (3.5-5.1)
--- NOTE | 2016-12-29 07:30 | IPNPDOC ---
Text Note Date of Service The patient was seen on 12/29/16. NOTE Subjective: Patient seen and examined at bedside. No new medical complaints, his back pain is well controlled. Objective: General: NAD HEENT: NC/AT, EOMI Lungs: CTA B/L Heart: +S1S2, RRR Abd: soft, NT, +BS, carrera catheter in place, draining dark pink colored urine Ext: B/L flank/CVA tenderness, bandages in place b/l flanks, area is C/D/I Psych: AAOx3 Assessment/Plan: This is a 61-year-old gentleman with advanced bladder tumor resulting in acute renal failure. 1. Oncologic/urology - s/p further debridement, bilateral double J stent placement, and biopsy - follow as per urology - Dr. Stuart - patient will need chemotherapy followed by cystectomy and then ileoconduit - repeat biopsy results - Multiple fragments of high-grade urothelial carcinoma with necrosis and muscle invasion - d/w Dr. Aleman at [facility] - transfer refused - recommended peer to peer discussion with urology or oncology - in house oncology consultation appreciated - given logistics of patient being incarcerated, recommending transfer to facility with locked unit - d/w dr. stuart - will need chemo prior to surgery, anticipating 3-5 days before removing stents - if no response from chemo, then likely no surgery 2. HTN - continue to follow clinically 3. CKD stage III - had acute renal failure and hyperkalemia which has resolved. 4. Infectious disease - patient had fever, urinary obstruction and elevated white cell count - resolved - will d/c abx 5. Acute blood loss anemia - from hematuria - continue daily CBC 6. The patient has mechanical deep vein thrombosis (DVT) prophylaxis. Disposition: The patient has a complicated social situation. Discussed with Dr. Aleman at [facility], and transfer was refused - recommended further discussion between urologists and/or oncologists. In house oncology recommending 3-4 months chemo, and given logistics involved with o/p chemo for incarcerated patient, recommending transfer to facility with locked unit. Will discuss with [place] transfer center again. VS,Fishbone, I+O VS, Fishbone, I+O Laboratory Tests 12/29/16 05:51 Red Blood Count 3.44 L, Mean Corpuscular Volume 82.2, Mean Corpuscular Hemoglobin 26.4 L, Mean Corpuscular Hemoglobin Concent 32.1, Red Cell Distribution Width 18.6 H, Calcium Level 9.0 Vital Signs Date Time Temp Pulse Resp B/P (MAP) Pulse Ox O2 Delivery O2 Flow Rate FiO2 12/29/16 06:00 98.6 104 18 162/87 (112) 97 12/29/16 05:55 Room Air I&O- Last 24 Hours up to 6 AM 12/30/16 05:59 Intake Total 495 ml Balance 495 ml ACE MAE MD Dec 29, 2016 07:30
[2016-12-29] MEDS: TAMSULOSIN 0.4 MG CAP PO SCH (09:05)
[2016-12-29] MEDS: PANTOPRAZOLE 40MG TAB (PROTONIX) PO SCH (09:05)
[2016-12-29] MEDS: LACTOBACILLUS ACIDOPHILUS CAP (BACID) PO SCH ×2 (09:05→21:10)
[2016-12-29] MEDS: amLODIPine 5 MG TAB PO SCH ×2 (09:06→21:10)
[2016-12-29] MEDS: NICOTINE 14 MG/24 HR TRANSDERMAL TD SCH (09:06)
[2016-12-29 14:00] VITALS: BP 136/79
[2016-12-29] MEDS: diphenhydrAMINE 25 MG CAP PO PRN (21:10)
[2016-12-29 22:00] VITALS: BP 140/87
[2016-12-30] MEDS: PIPERACILLIN/TAZOBACTAM SOD 2.25 GM in D5W MINI-BAG PLUS 50 ML IV SCH (00:20)
[2016-12-30] MEDS: D5W/0.45% SODIUM CHLORIDE 1,000 ML IV SCH ×3 (03:46→23:30)
[2016-12-30 06:00] VITALS: BP 132/77
[2016-12-30 06:30] LABS: CALCIUM LEVEL 8.4 MG/DL (8.8-10.2); CREATININE FOR GFR 1.83 MG/DL (0.70-1.30); POTASSIUM SERUM 4.1 MEQ/L (3.5-5.1)
[2016-12-30 06:34] LABS: MEAN CORPUSCULAR HEMOGLOBIN 26.4 pg (27.0-33.0); MEAN CORPUSCULAR HGB CONC 31.9 g/dl (32.0-36.5); MEAN CORPUSCULAR VOLUME 82.8 fl (80.0-96.0); RED CELL DISTRIBUTION WIDTH 18.5 % (11.5-14.5); WHITE BLOOD COUNT 8.3 K/mm3 (4.0-10.0)
--- NOTE | 2016-12-30 08:26 | IPNPDOC ---
Text Note Date of Service The patient was seen on 12/30/16. NOTE Subjective: Patient seen and examined at bedside. No new medical complaints, his back pain is well controlled. His diarrhea is improving. His hematuria appears to be improving. Objective: General: NAD HEENT: NC/AT, EOMI Lungs: CTA B/L Heart: +S1S2, RRR Abd: soft, NT, +BS, carrera catheter in place, draining pink colored urine Ext: B/L flank/CVA tenderness, bandages in place b/l flanks, area is C/D/I Psych: AAOx3 Assessment/Plan: This is a 61-year-old gentleman with advanced bladder tumor resulting in obstructive uropathy and acute renal failure. 1. Oncologic/urology - s/p further debridement, bilateral double J stent placement, and biopsy - follow per urology - d/w with Dr. Stuart - pt will need chemo followed by cystectomy and then ileoconduit; anticipating removing stents in next 3 days - repeat biopsy results - Multiple fragments of high-grade urothelial carcinoma with necrosis and muscle invasion - d/w Dr. Aleman at [facility] - transfer refused - recommended peer to peer discussion between urology - in house oncology consultation appreciated - given logistics of patient being incarcerated and chemotherapy, recommending transfer to facility with locked unit - if no response from chemo, then likely no surgery 2. HTN - continue to follow clinically 3. CKD stage III - had acute renal failure and hyperkalemia which has resolved. 4. Infectious disease - patient had fever, urinary obstruction and elevated white cell count - resolved - will d/c abx - GI panel pending - diarrhea improving 5. Acute blood loss anemia - from hematuria - continue daily CBC - stable for now 6. The patient has mechanical deep vein thrombosis (DVT) prophylaxis. Disposition: The patient has a complicated social situation. Discussed with Dr. Aleman at [facility], and transfer was refused - recommended further discussion between urologists. In house oncology recommending 3-4 months chemo, and given logistics involved with o/p chemo for incarcerated patient, recommending transfer to facility with locked unit. Will discuss with Call made to [place] transfer center again today. Hospitalist service has accepted the patient. Accepting MD is Dr. Alexis Nicolas. Was advised that there are currently no beds available in the locked unit. Was also advised that administration at [facility] would need to discuss this transfer. VS,Fishbone, I+O VS, Fishbone, I+O Laboratory Tests 12/30/16 05:35 Red Blood Count 3.57 L, Mean Corpuscular Volume 82.8, Mean Corpuscular Hemoglobin 26.4 L, Mean Corpuscular Hemoglobin Concent 31.9 L, Red Cell Distribution Width 18.5 H, Calcium Level 8.4 L Vital Signs Date Time Temp Pulse Resp B/P (MAP) Pulse Ox O2 Delivery O2 Flow Rate FiO2 12/30/16 06:00 97.8 93 18 132/77 (95) 97 12/29/16 21:41 Room Air I&O- Last 24 Hours up to 6 AM 12/31/16 05:59 Intake Total 1050 ml Balance 1050 ml ACE MAE MD Dec 30, 2016 08:26
[2016-12-30] MEDS: amLODIPine 5 MG TAB PO SCH ×2 (08:57→21:52)
[2016-12-30] MEDS: TAMSULOSIN 0.4 MG CAP PO SCH (08:57)
[2016-12-30] MEDS: LACTOBACILLUS ACIDOPHILUS CAP (BACID) PO SCH ×2 (08:58→21:50)
[2016-12-30] MEDS: PERCOCET 5MG/325MG TAB PO PRN ×3 (08:58→21:51)
[2016-12-30] MEDS: PANTOPRAZOLE 40MG TAB (PROTONIX) PO SCH (08:58)
[2016-12-30] MEDS: NICOTINE 14 MG/24 HR TRANSDERMAL TD SCH (08:59)
[2016-12-30 14:00] VITALS: BP 128/72
[2016-12-30] MEDS: diphenhydrAMINE 25 MG CAP PO PRN (21:50)
[2016-12-30 22:00] VITALS: BP 158/89
[2016-12-31 06:00] VITALS: BP 140/90
[2016-12-31 06:24] LABS: MEAN CORPUSCULAR HEMOGLOBIN 26.7 pg (27.0-33.0); MEAN CORPUSCULAR VOLUME 83.3 fl (80.0-96.0); RED CELL DISTRIBUTION WIDTH 18.5 % (11.5-14.5); WHITE BLOOD COUNT 10.7 K/mm3 (4.0-10.0)
[2016-12-31 06:37] LABS: CALCIUM LEVEL 9.1 MG/DL (8.8-10.2); CREATININE FOR GFR 1.79 MG/DL (0.70-1.30); GLOMERULAR FILTRATION RATE 50.2 (>49); POTASSIUM SERUM 4.2 MEQ/L (3.5-5.1)
[2016-12-31] MEDS: PERCOCET 5MG/325MG TAB PO PRN ×2 (08:32→15:19)
[2016-12-31 08:33] VITALS: BP 140/90
[2016-12-31] MEDS: amLODIPine 5 MG TAB PO SCH (08:33)
[2016-12-31] MEDS: PANTOPRAZOLE 40MG TAB (PROTONIX) PO SCH (08:33)
[2016-12-31] MEDS: LACTOBACILLUS ACIDOPHILUS CAP (BACID) PO SCH (08:33)
[2016-12-31] MEDS: TAMSULOSIN 0.4 MG CAP PO SCH (08:33)
[2016-12-31] MEDS: NICOTINE 14 MG/24 HR TRANSDERMAL TD SCH (08:33)
[2016-12-31] MEDS ORDERED: SENOKOT S TAB PO SCH (09:00)
[2016-12-31] MEDS ORDERED: MOM 30ML SUSPENSION UDC PO PRN (12:15)
--- NOTE | 2016-12-31 12:33 | IPN ---
DATE: 12/31/2016 Patient is feeling well. Thinks his urine is looking supervisor plate pasting. Is looking forward to getting chemotherapy. Temperature 98.3, pulse 101, respiratory rate 16, blood pressure 140/90, 98% on room air. Intake and output notable for a negative fluid balance of -2365. He is awake and appropriately interactive, pleasantly conversant. Breathing is symmetrical and rested. Heart is in a regular rate and rhythm. Abdomen is soft , doughy, nontender. White cell count 10.7, hemoglobin 10.6 and platelets of 1085. BUN 13, creatinine 1.79. My assessment is as follows: This is a 61-year-old with advanced bladder tumor resulting in obstructive uropathy and acute renal failure. Plan is as follows: 1. Neurologic. Patient has high grade urothelial carcinoma with necrosis and muscle invasion. Plan is for transfer to [place] for inpatient chemotherapy. The patient has been accepted, but there is no bed available today. 2. Patient has hypertension. 3. Patient has chronic kidney disease, stage III. Creatinine continues to improve beyond which I would of thought. 4. Infectious disease. Patient had fever, urinary obstruction and elevated white count. Is off antibiotics. 5. Patient has thrombocytopenia. Will check a peripheral smear. Cause of this unclear. 6. Patient has acute blood loss anemia from hematuria. 7. Patient has mechanical deep vein thrombosis (DVT) prophylaxis. MTDD
[2016-12-31 14:00] VITALS: BP 138/75
[2016-12-31] MEDS: D5W/0.45% SODIUM CHLORIDE 1,000 ML IV SCH (15:19)
[2016-12-31] MEDS ORDERED: NICO14PA TD (16:43)
[2016-12-31] MEDS ORDERED: PANT40TA2 PO (16:43)
[2016-12-31] MEDS ORDERED: SENN1TAB2 PO (16:43)
[2016-12-31] MEDS ORDERED: RISATAB3 PO (16:43)
[2016-12-31] MEDS ORDERED: FLOM5CAP PO (16:43)
[2016-12-31] MEDS ORDERED: AMLO5TAB2 PO (16:43)
[2016-12-31] MEDS ORDERED: MORP4SYR IV (16:43)
[2016-12-31] MEDS ORDERED: MILKSUS PO (16:43)
[2016-12-31] MEDS ORDERED: PERCOCET PO (16:43)
[2016-12-31] MEDS ORDERED: DIPH25CA PO (16:43)
[2016-12-31] MEDS ORDERED: ONDA4VLL IV (16:43)
--- NOTE | 2016-12-31 18:47 | DSES ---
DATE OF ADMISSION: 12/18/2016 DATE OF DISCHARGE: 12/31/2016 Discharged as a transfer to [facility]. SPECIALIST PHYSICIANS INVOLVED IN HIS CARE: Included: 1. Dr. Stuart from urology. 2. Dr. Paredes from hematology/oncology. 3. Dr. Reddy and Dr. Mark from nephrology. PROCEDURES PERFORMED DURING THIS STAY: Included: 1. Bilateral nephrostomy tubes placed 12/19/2016. 2. Cystoscopy, clot evacuation, and transurethral resection of the prostate (TURP) 12/22/2016. 3. Cystoscopy with bilateral JJ stents and Transurethral resection of bladder tumor bipolar (TURBT) by Dr. Stuart on 12/26/2016. There were no complications during his stay. DISCHARGE DIAGNOSES: 1. Acute renal failure. 2. Suspected chronic kidney disease, stage III. 3. Hyperkalemia. 4. Obstructive uropathy. 5. High-grade urothelial carcinoma with necrosis and muscle invasion. 6. Acute blood loss anemia, status post seven units of blood transfused. 7. Hypertension. 8. Atrophic left kidney. 9. Thrombocytosis. BRIEF SUMMARY OF HIS HOSPITALIZATION: This is a 61-year-old gentleman who is a resident of [facility] who had had previous workup for a suspected bladder mass but had not pursued surgical procedure previously offered to him. He went on to develop difficulty urinating and hematuria with low back pain. He was brought to [facility] for evaluation. He was found to have acute renal failure with a creatinine of 5.86 and a potassium of 5.5. CT scan of the abdomen and pelvis without contrast went on to show a suspected bladder mass, bilateral hydronephrosis, and abdominal adenopathy. He had nephrostomy tubes placed. He was seen in consultation by urology and monitored on telemetry in the setting of his hyperkalemia. His initial hemoglobin was 6.1 and he did receive blood transfusions. He responded well to fluid hydration and his creatinine has fallen nicely during his stay to 1.79, its low point. He has had ongoing hematuria and has had two cystoscopies for tumor debulking, pathological sampling, and then repeat cystoscopy for further debulking and JJ stent placements. Nephrostomy tubes have been removed. He has a Smart catheter in place. He has had continuous bladder irrigation during the course of his stay. Hemoglobin has been stable since 12/29/2016. His last transfusion was 12/28/2016. He was seen in consultation by oncology who recommended chemotherapy and working with urology, the thought would be that he would undergo perhaps cystectomy and ileal conduit placement after chemotherapy. This was complicated as he is a resident of [facility] and working with administrative arm of the correction system and start with the best place to transfer him will be [place] for a locked unit inpatient chemotherapy. Dr. Henry initially called Dr. Aleman who refused the patient in transfer but after further review, Dr. Nicolas has accepted the patient in transfer. A bed remarkably became available this evening and the patient is transferred. Please see my progress note for his condition on discharge and this is a move forward in the time table that was not previously suspected possible today. DISCHARGE INSTRUCTIONS: Include the following: Continue: - amlodipine 5 mg by mouth twice a day - diphenhydramine 25 mg by mouth at bedtime as needed for insomnia - milk of magnesia as needed for constipation, he has had constipation during this stay - morphine sulfate 4 mg every three hours as needed for pain, not to be used more than once per day - nicotine transdermal 14 mg patch topically daily - Zofran 4 mg every eight hours as needed for nausea or vomiting - Percocet 5/325 every four hours as needed for pain - Protonix 40 mg by mouth daily - probiotic one tablet by mouth twice a day - Senokot-S 8.6/50 one tablet by mouth twice a day - Flomax 0.4 mg by mouth daily We have discontinued his home lisinopril, discontinued his home Claritin, discontinued the multivitamin. We have asked that all images obtained during this visit are sent with the patient. We do also have records from [facility] ([facility] that will also be copied and sent with the patient.
== END 2016-12-31 19:25 | disposition other institution (70) | DRG 442 ==
LOC: EDBD 12:45 → M ED 12:45 → M ED INP 15:30 → M PCU 17:45 → M MSPAV 12-21 22:56
PROVIDERS: ADMIT Hospitalist; ATTEND Internal Medicine
PROC: 30233N1 Transfusion of Nonautologous Red Blood Cells into Peripheral Vein, Percutaneous Approach (ICD-10-PCS; 2016-12-18)
PROC: 0T9880Z Drainage of Bilateral Ureters with Drainage Device, Via Natural or Artificial Opening Endoscopic (ICD-10-PCS; 2016-12-19)
PROC: 0T5B8ZZ Destruction of Bladder, Via Natural or Artificial Opening Endoscopic (ICD-10-PCS; 2016-12-22)
PROC: 0TBB8ZX Excision of Bladder, Via Natural or Artificial Opening Endoscopic, Diagnostic (ICD-10-PCS; principal; 2016-12-22 08:53)
PROC: 0TBB8ZZ Excision of Bladder, Via Natural or Artificial Opening Endoscopic (ICD-10-PCS; 2016-12-26)
PROC: 0T1 Urinary System, Bypass (ICD-10-PCS; 2016-12-26)
PROC: 0T1 Urinary System, Bypass (ICD-10-PCS; 2016-12-26)
PROC: 0TBC8ZX Excision of Bladder Neck, Via Natural or Artificial Opening Endoscopic, Diagnostic (ICD-10-PCS; 2016-12-26)
DX: C67.9 Malignant neoplasm of bladder, unspecified (principal); I95.9 Hypotension, unspecified; N17.9 Acute kidney failure, unspecified; E87.5 Hyperkalemia; N13.30 Unspecified hydronephrosis; N26.1 Atrophy of kidney (terminal); N18.3 Chronic kidney disease, stage 3 (moderate); N32.0 Bladder-neck obstruction; N40.1 Benign prostatic hyperplasia with lower urinary tract symptoms; D62 Acute posthemorrhagic anemia; I12.9 Hypertensive chronic kidney disease with stage 1 through stage 4 chronic kidney disease, or unspecified chronic kidney disease; F17.210 Nicotine dependence, cigarettes, uncomplicated; N13.8 Other obstructive and reflux uropathy; Z79.899 Other long term (current) drug therapy

== ENCOUNTER 2017-02-15 15:05 | Inpatient (IN) | payer OTHER ==
[~2017-02-15] VITALS: Ht 177.8 cm; Wt 74.4 kg
[~2017-02-15 15:05] MED LIST: AMLO5TAB2 PO; CLAR10CA3 PO; DIPH25CA PO; FLOM5CAP PO; LISI2.5T3 PO; MILKSUS PO; MORP4SYR IV; MULT1TAB18 PO; NICO14PA TD; ONDA4VLL IV; PANT40TA2 PO; PERCOCET PO; RISATAB3 PO; SENN1TAB2 PO
[2017-02-15 15:49] LABS: BASO # 0.1 10^3/uL (0.0-0.2); BASO % 0.9 % (0.0-1.0); EOS # 0.7 10^3/uL (0.0-0.50); EOS % 8.6 % (0.0-3.0); IMMATURE GRANULOCYTE % 0.9 % (0-0); LYMPH # 1.8 10^3/uL (1.5-4.5); LYMPH % 20.8 % (24.0-44.0); MEAN CORPUSCULAR HEMOGLOBIN 25.9 pg (27.0-33.0); MEAN CORPUSCULAR HGB CONC 30.7 g/dl (32.0-36.5); MEAN CORPUSCULAR VOLUME 84.3 fl (80.0-96.0); MONO # 0.8 10^3/uL (0.0-0.8); MONO % 9.9 % (0.0-5.0); NEUTROPHILS % 58.9 % (36.0-66.0); RED CELL DISTRIBUTION WIDTH 19.9 % (11.5-14.5); WHITE BLOOD COUNT 8.5 10^3/uL (4.0-10.0)
[2017-02-15 15:53] LABS: POS COUNT POS FLAG
[2017-02-15 15:54] LABS: PLATELET COUNT, AUTOMATED 1018 10^3/uL (150-450)
[2017-02-15 16:06] LABS: CALCIUM LEVEL 9.4 MG/DL (8.8-10.2); CREATININE FOR GFR 3.29 MG/DL (0.70-1.30); GLOMERULAR FILTRATION RATE 24.9 (>49)
[2017-02-15 16:14] LABS: POTASSIUM SERUM 6.8 MEQ/L (3.5-5.1)
[2017-02-15] MEDS ORDERED: DEXTROSE 50% 50 ML SYRINGE IV STA (16:48)
[2017-02-15] MEDS ORDERED: HumuLIN R (REGULAR) INSULIN (NovoLIN R) **100U/ML** PER UNIT IV STA (16:48)
[2017-02-15] MEDS ORDERED: predniSONE 20 MG TAB PO ONE (17:00)
[2017-02-15] MEDS ORDERED: valACYclovir HCL 500 MG TAB PO ONE (17:00)
[2017-02-15] MEDS ORDERED: CALCIUM CHLORIDE 10% 1 GM in D5W 100 ML IV ONE (17:00)
[2017-02-15] MEDS ORDERED: OMEP20CA3 PO (17:34)
[2017-02-15] MEDS ORDERED: SENN8.6T54 PO (17:34)
[2017-02-15] MEDS ORDERED: BACT800T5 PO (17:34)
[2017-02-15] MEDS ORDERED: DIPH25CA PO (17:34)
[2017-02-15] MEDS ORDERED: KETO30IN4 IM (17:34)
[2017-02-15] MEDS ORDERED: VITMTA PO (17:34)
--- NOTE | 2017-02-15 17:43 | REP ---
Chest one-view HISTORY: Acute renal failure Comparison: 12/21/1969 The lungs are clear. The heart is normal in size. The pulmonary vasculature is normal in appearance. Impression: No acute disease. Signed by Dallas Sullivan MD 02/15/2017 05:34 P
[2017-02-15] MEDS ORDERED: MORPHINE 2 MG/ML 1ML SYRINGE IV ONE (18:30)
--- NOTE | 2017-02-15 18:51 | REP ---
CT ABDOMEN AND PELVIS WITHOUT CONTRAST: HISTORY: Obstructive uropathy. COMPARISON: 12/18/2016. The liver, gallbladder, pancreas, spleen, and adrenal glands are normal in appearance. The left kidney is atrophic. Bilateral ureteral stents are present. Retroperitoneal adenopathy is present that appears unchanged compared to the previous study. A Smart catheter is present in the urinary bladder. There is enlargement of the prostate gland, greater on the left than on the right. Calcifications are present. The prostate gland measures 8.2 cm in transverse x 5.1 cm in AP dimensions and appears slightly decreased in size compared to the previous examination. There is no free fluid. Degenerative change is present in the spine. The visualized lungs are clear. IMPRESSION:1. There is enlargement of the prostate gland consistent with carcinoma. This appears slightly decreased in size compared to the previous study. 2. Retroperitoneal adenopathy unchanged compared to the previous study. 3. Bilateral ureteral stents are present. Left renal atrophy. Signed by Dallas Sullivan MD 02/15/2017 07:11 P
[2017-02-15] MEDS ORDERED: ONDANSETRON 4MG/2ML VIAL (J2405) IV PRN (19:00)
[2017-02-15] MEDS ORDERED: PERCOCET 5MG/325MG TAB PO PRN (19:15)
[2017-02-15] MEDS: NS 1,000 ML IV SCH (19:20)
[2017-02-15] MEDS ORDERED: SOD POLYSTYRENE SULFONATE SUSP 15 GM/60 ML UD PO ONE (19:45)
--- NOTE | 2017-02-15 20:13 | HPE ---
DATE OF ADMISSION: 02/15/2017 This is a 61-year-old known to me from his previous admission. He has a locally advanced bladder cancer and ureteral cancer was admitted to [facility] from 12/18 to 12/31, was transferred to [facility] from my service to Dr. Almaraz's service where he underwent a round of chemotherapy, was sent back to [facility], he went back again for another round of chemotherapy, that transfer was not as smooth, and thereafter it was thought that he might do better receiving chemotherapy at [facility]. He has now been referred to [facility]. He went for his first visit there today and discussed possible chemotherapy. They ray normal labs, and upon patient's return almost immediately to the correctional facility, it was noted that his creatinine was elevated, and it was suggested that he go by ambulance to [facility]. He presented here with hyperkalemia and acute renal failure. He has been feeling about as a his baseline, has chronic lower abdominal discomfort, but otherwise is unaware that he had hyperkalemia or developing acute renal failure. During the course of my evaluation, he became very diaphoretic, was found to be hypoglycemic and was treated with sugar beverages and D50. PAST MEDICAL HISTORY Notable for tobacco use, benign prostatic hypertrophy, ureteral bladder cancer, chronic renal insufficiency, thrombocytosis, chronic kidney disease stage 3, hyponatremia, obstructive uropathy with chronic indwelling Smart catheter, bilateral ureteral stents, mucositis related to chemotherapy. SURGICAL HISTORY: Notable for ureteroscopy. Procedures performed at last admission related to bladder cancer attempted debulking and stent placement. FAMILY HISTORY: Unremarkable due to his current illness. SOCIAL HISTORY: He used tobacco. He is incarcerated. Due to be released this coming Spring. ALLERIGIES: No listed drug allergies. MEDICATIONS AT HOME: Include Benadryl, Senokot S, multivitamin, omeprazole, Toradol IM for pain and Bactrim 10 day course which is due to end today that he is taking for reasons that are unclear to me. REVIEW OF SYSTEMS: No headache, no visual changes. He was diaphoretic during my exam. No runny nose, no sore throat, no cough, no shortness of breath, he has had weight loss, he has some lower abdominal pain. He has been tolerating diet otherwise unremarkable. PHYSICAL EXAMINATION: Temperature 97.6, pulse 88, respiratory rate 18, blood pressure 146/80, 98% on room air. Awake and appropriately interactive. Pleasantly conversant, remembers me from previous encounters. He is somewhat pale appearing. Sinuses are non-tender. Pupils are equally round and reactive and anicteric. Nasal septum is midline. Mucous membranes are moist. Neck supple. Breathing symmetrical, rested. Heart is regular rate and rhythm, borderline tachycardic with a rate around 100 on my exam. Radial pulse is 2+, capillary refill is less than 2 seconds. Abdomen is soft, doughy with lower quadrant tenderness. No rebound or guarding. No CVA tenderness. No lower extremity edema. White cell count 8.4, hemoglobin 7.9, platelets of 1018. Sodium 136, potassium 6.8, chloride 109, carbon dioxide 21, BUN 31, creatinine 3.29. Glucose is 85 at 1520, it was 47 at 1828 and 195 at 1847. Chest x-ray shows no acute disease. Abdominal and pelvic CT shows no evidence of obstructive hydronephrosis. He has known left renal atrophy. Slightly improved size of the prostate gland and unchanged retroperitoneal adenopathy. Electrocardiogram shows sinus at a rate of 76. He had PT waves with a normal QTC interval. MY ASSESSMENT IS FOLLOWS: This is a 61-year-old with acute renal failure from multiple possible etiologies who will require two midnight hospital stays to address his acute renal failure and hyperkalemia. 1. Renal. The patient's renal failure is likely related to underlying illness, use of chemotherapy and complicated with a course of Bactrim and intermittent use of Toradol. Plan will be to give IV fluids overnight, repeat labs in the morning. He has received calcium. He had received insulin and glucose which resulted in hypoglycemia. That will not be repeated. We will also give Kayexalate as a binder and attempt to withhold nephrotoxin medications. I have reviewed the CT scan in person with the radiologist. There is no evidence of obstructive etiology. The patient does require a Smart catheter chronically and that should not be removed during this hospital stay. 2. Patient has anemia which is likely related to chemotherapy and underlying renal disease. He does appear pale. There may be a role from transfusion. He also has thrombocytosis which was previously noted and had improved with chemotherapy in the past. 3. The patient has locally advanced bladder cancer and ureteral cancer. Planning for followup at [facility]. 4. The patient is a prisoner which presents a complicated social situation. It would be not unreasonably to pursue having this patient released from custody which might ease his outpatient treatment if insurance was available to him. 5. Deep vein thrombosis prophylaxis has been ordered as sequential compression devices (SCDs) and thromboembolic deterrent stockings (TEDS) currently given his underlying renal function. 6. Patient has pain. I have ordered Percocet for pain management with a single dose of morphine to be given in the emergency department.
[2017-02-15 20:41] VITALS: BP 133/73
[2017-02-15] MEDS: NICOTINE 21MG/24HR 1 EA TRANSDERMAL TD SCH (20:56)
[2017-02-15] MEDS ORDERED: diphenhydrAMINE 25 MG CAP PO SCH (21:00)
[2017-02-15 22:14] VITALS: BP 129/63
[2017-02-15] MEDS: PERCOCET 5MG/325MG TAB PO PRN (22:14)
[2017-02-16] VITALS: BP 125/77
[2017-02-16 04:00] VITALS: BP 121/69
[2017-02-16] MEDS: NS 1,000 ML IV SCH (04:29)
[2017-02-16] MEDS: PERCOCET 5MG/325MG TAB PO PRN ×2 (04:30→16:13)
[2017-02-16 04:46] LABS: MEAN CORPUSCULAR HEMOGLOBIN 26.3 pg (27.0-33.0); MEAN CORPUSCULAR HGB CONC 31.4 g/dl (32.0-36.5); PLATELET COUNT, AUTOMATED 1091 10^3/uL (150-450); RED CELL DISTRIBUTION WIDTH 19.7 % (11.5-14.5); RETIC HEMOGLOBIN EQUIVALENT 37.3 pg (24-36); RETICULOCYTE % 0.9 % (0.5-1.5); WHITE BLOOD COUNT 8.3 10^3/uL (4.0-10.0)
[2017-02-16 04:47] LABS: POS COUNT POS FLAG
[2017-02-16 05:10] LABS: ALBUMIN 2.7 GM/DL (3.2-5.2); CALCIUM LEVEL 8.7 MG/DL (8.8-10.2); CREATININE FOR GFR 2.83 MG/DL (0.70-1.30); GLOMERULAR FILTRATION RATE 29.6 (>49); MAGNESIUM LEVEL 1.7 MG/DL (1.8-2.4); PERCENT SATURATION 17.3 % (19.7-50.0); PHOSPHORUS LEVEL 4.1 MG/DL (2.5-4.9)
[2017-02-16 05:12] LABS: POTASSIUM SERUM 7.1 MEQ/L (3.5-5.1)
[2017-02-16] MEDS ORDERED: HumuLIN R (REGULAR) INSULIN (NovoLIN R) **100U/ML** PER UNIT IV STA (05:40)
[2017-02-16] MEDS ORDERED: CALCIUM CHLORIDE 10% 1 GM/10 ML SYR IV STA ×2 (05:40→20:24)
[2017-02-16] MEDS ORDERED: SOD POLYSTYRENE SULFONATE SUSP 15 GM/60 ML UD PO ONE ×2 (05:45→20:30)
[2017-02-16] MEDS: D5W/0.45% SODIUM CHLORIDE 1,000 ML IV SCH ×2 (06:00→16:16)
[2017-02-16 06:19] LABS: POTASSIUM SERUM 7.1 MEQ/L (3.5-5.1)
--- NOTE | 2017-02-16 07:18 | ECGEPIP ---
Stationary ECG Study [facility] - ED Test Date: 2017-02-15 Pat Name: JA WONG Department: Room: - Gender: M [employer] Helper: sb : [id number] Requested By: Sina Cheung Order Number: [id number] Reading MD: Sina Young Measurements Intervals [place] Rate: 76 P: 81 WA: 160 QRS: 71 QRSD: 89 T: 69 QT: 339 QTc: 383 Interpretive Statements SINUS RHYTHM WITH SINUS ARRHYTHMIA EARLY REPOLARIZATION SIMILAR TO 12/21/16 Electronically Signed On 02-16-2017 7:18:22 EST by Sina Young
[2017-02-16] MEDS ORDERED: DEXTROSE 50% 50 ML SYRINGE IV STA (07:24)
[2017-02-16 08:00] VITALS: BP 159/90
[2017-02-16] MEDS ORDERED: MAG SULF 1GM/100ML (MAG RUN) 1 GM in APPROPRIATE DILUENT 1 EA IV ONE ×2 (08:15→20:00)
[2017-02-16] MEDS ORDERED: FUROSEMIDE 20 MG/2 ML VIAL (J1940) IV ONE (08:15)
[2017-02-16] MEDS: OMEPRAZOLE 20 MG CAP PO SCH (08:26)
[2017-02-16] MEDS: SENOKOT S TAB PO SCH (08:26)
[2017-02-16] MEDS: MULTIVITAMINS/MINERALS THERAP 1 TAB PO SCH (08:26)
[2017-02-16 12:00] VITALS: BP 129/79
[2017-02-16 12:23] LABS: MEAN CORPUSCULAR HEMOGLOBIN 26.4 pg (27.0-33.0); MEAN CORPUSCULAR HGB CONC 31.6 g/dl (32.0-36.5); MEAN CORPUSCULAR VOLUME 83.7 fl (80.0-96.0); RED CELL DISTRIBUTION WIDTH 19.9 % (11.5-14.5); WHITE BLOOD COUNT 8.4 10^3/uL (4.0-10.0)
--- NOTE | 2017-02-16 12:35 | IPNPDOC ---
Text Note Date of Service The patient was seen on 02/16/17. NOTE Subjective: Patient is a 61 year old male with a PMHx of BPH, Ureteral / Bladder CA (s/p chemotherapy, s/p bilateral ureteral stents, s/p Chronic indwelling Smart), CKD3, Thrombocytosis, Hx of Hyponatremia. Patient was recently admitted from 12/18 to 12/31 for active bladder cancer and transferred to [facility] for chemotherapy. Patient had followed up with [facility] to establish chemotherapy sessions their on 02/15. Lab work was acquired on preliminary visit, [facility] they were notified of an elevated Cr and was sent to [facility]. Patient was admitted for KACIE / Hyperkalemia. Patient was seen and examined at the bedside. Currently he notes some lower abdominal pain. He denies any chest pain, shortness of breath or palpitations. Objective: Vitals (See below) General: Lying in bed, no acute distress, comfortable, AAOx3 HEENT: NC, AT CVS: RRR, +S1S2 Lungs: Fair air entry b/l, -w/r/r Abdomen: Soft, ND, Tenderness at supra-pubic region and RLQ Extremities: - Edema, - Calf tenderness Assessment and plan: Acute renal failure on CKD3 - likely 2/2 pre-renal etiology, possibly intra- renal etiology (2/2 Chemotherapy, Toradol, Bactrim, Tumor Lysis?), less likely post-renal - Was brought to [facility] for abnormal lab work - Physical with supra-pubic pain and RLQ pain - Smart continues to put out urine - CT abdomen / pelvis 02/15: Enlargement of prostate, consistent with carcinoma , decreased in size, retroperitoneal adenopathy unchanged, bilateral ureteral stents, left renal atrophy - Elevated Cr; has been improving with IV fluid hydration - Cr baseline of 1.7-2.0 - c/w IV fluid hydration with D5 1/2 NS - Dr. Mark (Nephrology) consulted; appreciate their input Hyperkalemia with EKG changes - likely 2/2 renal dysfunction - Denies any chest pain, SOB, or palpitations - EKG reviewed this morning with hyperacute T-waves - Troponin negative - s/p Calcium gluconate, Glucose (D50) and Insulin, - s/p Kayexalate 30g PO x2 - c/w Telemetry monitoring - Will repeat lab work this afternoon - Dr. Mark (Nephrology) consulted; appreciate their input Normocytic anemia - likely 2/2 chemotherapy - Hg baseline of ~9 - Hg on admission of 7.9; lower this morning; likely 2/2 dilutional component of IV fluid hydration - Will repeat CBC at noon - Will transfuse if required Thrombocytosis - possibly 2/2 cancer - Has trended up since December 2016 - Will follow up with Hematology / Oncology - Will continue to monitor - Will consider starting ASA 81 after CBC results Advanced bladder / ureteral CA - will f/u in [facility] Hx of Hyponatremia GERD - c/w Omeprazole DVT prophylaxis - c/w SCDs VS,Fishbone, I+O VS, Fishbone, I+O Laboratory Tests 02/15/17 15:27 Red Blood Count 3.05 L, Mean Corpuscular Volume 84.3, Mean Corpuscular Hemoglobin 25.9 L, Mean Corpuscular Hemoglobin Concent 30.7 L, Red Cell Distribution Width 19.9 H, Neutrophils (%) (Auto) 58.9, Lymphocytes (%) (Auto) 20.8 L, Monocytes (%) (Auto) 9.9 H, Eosinophils (%) (Auto) 8.6 H, Basophils (%) (Auto) 0.9, Neutrophils # (Auto) 5.0, Lymphocytes # (Auto) 1.8, Monocytes # ( Auto) 0.8, Eosinophils # (Auto) 0.7 H, Basophils # (Auto) 0.1, Calcium Level 9.4 02/16/17 04:35 Red Blood Count 2.81 L, Mean Corpuscular Volume 84.0, Mean Corpuscular Hemoglobin 26.3 L, Mean Corpuscular Hemoglobin Concent 31.4 L, Red Cell Distribution Width 19.7 H, Anion Gap 6 L 02/16/17 05:41 Total Creatine Kinase 80 Vital Signs Date Time Temp Pulse Resp B/P (MAP) Pulse Ox O2 Delivery O2 Flow Rate FiO2 02/16/17 08:00 98.1 85 18 159/90 (113) 100 Room Air I&O- Last 24 Hours up to 6 AM 02/17/17 06:00 Intake Total 360 ml Output Total 700 ml Balance -340 ml ONELIA DANG MD Feb 16, 2017 12:35
[2017-02-16 12:41] LABS: ALBUMIN 2.7 GM/DL (3.2-5.2); ALBUMIN/GLOBULIN RATIO 0.79 (1.00-1.93); ALKALINE PHOSPHATASE 136 U/L (45-117); ALT/SGPT 25 U/L (12-78); ANION GAP 7 MEQ/L (8-16); AST/SGOT 13 U/L (7-37); BILIRUBIN,TOTAL < 0.1 MG/DL (0.2-1.0); BLOOD UREA NITROGEN 23 MG/DL (7-18); CALCIUM LEVEL 9.4 MG/DL (8.8-10.2); CARBON DIOXIDE LEVEL 24 MEQ/L (21-32); CHLORIDE LEVEL 109 MEQ/L (98-107); CREATININE FOR GFR 2.63 MG/DL (0.70-1.30); GLOMERULAR FILTRATION RATE 32.2 (>49); GLUCOSE, FASTING 111 MG/DL (80-110); PHOSPHORUS LEVEL 5.4 MG/DL (2.5-4.9); POTASSIUM SERUM 5.5 MEQ/L (3.5-5.1); SODIUM LEVEL 140 MEQ/L (136-145); TOTAL PROTEIN 6.1 GM/DL (6.4-8.2)
[2017-02-16 13:20] LABS: PLATELET COUNT, AUTOMATED 918 10^3/uL (150-450)
[2017-02-16 16:00] VITALS: BP 150/75
[2017-02-16 19:23] LABS: CALCIUM LEVEL 8.8 MG/DL (8.8-10.2); CREATININE FOR GFR 2.36 MG/DL (0.70-1.30); GLOMERULAR FILTRATION RATE 36.5 (>49); MAGNESIUM LEVEL 1.7 MG/DL (1.8-2.4); PHOSPHORUS LEVEL 4.7 MG/DL (2.5-4.9)
[2017-02-16 19:42] LABS: POTASSIUM SERUM 5.8 MEQ/L (3.5-5.1)
[2017-02-16 20:00] VITALS: BP 132/80
[2017-02-16] MEDS: NICOTINE 21MG/24HR 1 EA TRANSDERMAL TD SCH (20:35)
[2017-02-16] MEDS ORDERED: traZODone 50 MG TAB PO ONE (21:00)
[2017-02-17] VITALS: BP 119/70
[2017-02-17] MEDS: D5W/0.45% SODIUM CHLORIDE 1,000 ML IV SCH ×3 (01:08→18:43)
[2017-02-17 01:52] LABS: CALCIUM LEVEL 8.8 MG/DL (8.8-10.2); CREATININE FOR GFR 2.16 MG/DL (0.70-1.30); GLOMERULAR FILTRATION RATE 40.4 (>49); MAGNESIUM LEVEL 1.9 MG/DL (1.8-2.4); POTASSIUM SERUM 4.9 MEQ/L (3.5-5.1)
[2017-02-17 04:00] VITALS: BP 145/83
[2017-02-17 06:04] LABS: MEAN CORPUSCULAR HEMOGLOBIN 26.3 pg (27.0-33.0); MEAN CORPUSCULAR HGB CONC 31.4 g/dl (32.0-36.5); MEAN CORPUSCULAR VOLUME 83.8 fl (80.0-96.0); PLATELET COUNT, AUTOMATED 905 10^3/uL (150-450); RED CELL DISTRIBUTION WIDTH 19.9 % (11.5-14.5); WHITE BLOOD COUNT 12.5 10^3/uL (4.0-10.0)
[2017-02-17 06:21] LABS: ALBUMIN 2.5 GM/DL (3.2-5.2); CALCIUM LEVEL 8.8 MG/DL (8.8-10.2); CREATININE FOR GFR 2.05 MG/DL (0.70-1.30); MAGNESIUM LEVEL 1.8 MG/DL (1.8-2.4); PHOSPHORUS LEVEL 3.5 MG/DL (2.5-4.9); POTASSIUM SERUM 5.1 MEQ/L (3.5-5.1)
[2017-02-17] MEDS: SENOKOT S TAB PO SCH (07:37)
[2017-02-17] MEDS: MULTIVITAMINS/MINERALS THERAP 1 TAB PO SCH (09:19)
[2017-02-17] MEDS: OMEPRAZOLE 20 MG CAP PO SCH (09:20)
[2017-02-17] MEDS: MAGNESIUM OXIDE 400 MG TAB (MAG-OX) PO SCH ×2 (09:20→21:27)
[2017-02-17] MEDS: PERCOCET 5MG/325MG TAB PO PRN ×2 (09:20→17:24)
--- NOTE | 2017-02-17 09:42 | IPNPDOC ---
Text Note Date of Service The patient was seen on 02/17/17. NOTE Subjective: Patient is a 61 year old male with a PMHx of BPH, Ureteral / Bladder CA (s/p chemotherapy, s/p bilateral ureteral stents, s/p Chronic indwelling Smart), CKD3, Thrombocytosis, Hx of Hyponatremia. Patient was recently admitted from 12/18 to 12/31 for active bladder cancer and transferred to [facility] for chemotherapy. Patient had followed up with [facility] to establish chemotherapy sessions their on 02/15. Lab work was acquired on preliminary visit, [facility] they were notified of an elevated Cr and was sent to [facility]. Patient was admitted for KACIE / Hyperkalemia. Patient was seen and examined at the bedside. Patient has not had any complaints of chest pain, palpitations or shortness of breath. He notes some abdominal pain. Denies any dysuria or cough. Objective: Vitals (See below) General: Lying in bed, no acute distress, comfortable, AAOx3 HEENT: NC, AT CVS: RRR, +S1S2 Lungs: Fair air entry b/l, -w/r/r Abdomen: Soft, ND, Again tenderness at supra-pubic region and RLQ Extremities: - Edema, - Calf tenderness Assessment and plan: Acute renal failure on CKD3 - likely 2/2 pre-renal etiology, possibly intra- renal etiology (2/2 Chemotherapy, Toradol, Bactrim, Tumor Lysis?), less likely post-renal - Was brought to [facility] for abnormal lab work - Physical with supra-pubic pain and RLQ pain - Continues to produce adequate amount of urine via Smart - CT abdomen / pelvis 02/15: Enlargement of prostate, consistent with carcinoma , decreased in size, retroperitoneal adenopathy unchanged, bilateral ureteral stents, left renal atrophy - Elevated Cr has trended down - Cr baseline of 1.7-2.0 - c/w IV fluid hydration with D5 1/2 NS - Dr. Mark (Nephrology) consulted; appreciate their input s/p Hyperkalemia with EKG changes - likely 2/2 renal dysfunction - Denies any chest pain, SOB, or palpitations - Will follow up repeat EKG this AM - Troponin negative - s/p Calcium gluconate, Glucose (D50) and Insulin - s/p Kayexalate 30g PO x2 - c/w Telemetry monitoring Hypomagnesemia - s/p IV supplementation - will c/w Oral supplement Normocytic anemia - likely 2/2 chemotherapy - Hg baseline of ~9 - Hg on admission of 7.9; has remained stable without transfusion - Will continue to monitor Thrombocytosis - possibly 2/2 cancer; possibly reactive etiology - Has trended up since December 2016 - Will follow up with Hematology / Oncology - Will continue to monitor - Will start ASA 81 Leukocytosis - possibly 2/2 infectious etiology - Has had low grade fevers - Review of systems negative - CXR negative - Will check UA and Blood cultures - Will hold off on antibiotics currently Advanced bladder / ureteral CA - will f/u in [facility] Insomnia - c/w Trazodone Hx of Hyponatremia GERD - c/w Omeprazole DVT prophylaxis - c/w SCDs - Will start Lovenox VS,Fishbone, I+O VS, Fishbone, I+O Laboratory Tests 02/16/17 12:06 Red Blood Count 2.95 L, Mean Corpuscular Volume 83.7, Mean Corpuscular Hemoglobin 26.4 L, Mean Corpuscular Hemoglobin Concent 31.6 L, Red Cell Distribution Width 19.9 H, Calcium Level 9.4, Phosphorus Level 5.4 #H, Aspartate Amino Transf (AST/SGOT) 13, Alanine Aminotransferase (ALT/SGPT) 25, Alkaline Phosphatase 136 H, Total Bilirubin < 0.1 L, Total Protein 6.1 L, Albumin 2.7 L 02/16/17 18:51 Calcium Level 8.8 02/17/17 00:58 Calcium Level 8.8 02/17/17 05:49 Red Blood Count 3.08 L, Mean Corpuscular Volume 83.8, Mean Corpuscular Hemoglobin 26.3 L, Mean Corpuscular Hemoglobin Concent 31.4 L, Red Cell Distribution Width 19.9 H, Anion Gap 8 Vital Signs Date Time Temp Pulse Resp B/P (MAP) Pulse Ox O2 Delivery O2 Flow Rate FiO2 02/17/17 09:20 24 100 Room Air 02/17/17 04:00 98.3 95 145/83 (103) ONELIA DANG MD Feb 17, 2017 09:42
[2017-02-17] MEDS: ASPIRIN 81 MG ENTERIC TAB PO SCH (10:26)
[2017-02-17 12:00] VITALS: BP 127/87
[2017-02-17] MEDS: HEPARIN SOD (PORCINE) 5000 UNITS/ML VIAL SQ SCH ×2 (14:26→21:28)
[2017-02-17] MEDS: FERROUS GLUCONATE 324 MG TAB PO SCH (14:26)
[2017-02-17 16:00] VITALS: BP 139/78
--- NOTE | 2017-02-17 16:49 | CR ---
DATE OF CONSULTATION: 02/16/2017 CONSULTATION REPORT FOR: Dr. Jr Barney REASON FOR CONSULTATION: Acute on chronic renal failure with hyperkalemia. HISTORY OF PRESENT ILLNESS: The patient is a 61-year-old male with a past medical history of a locally advanced bladder and ureteral cancer with recent carboplatin-based chemotherapy per the patient, history of benign prostatic hypertrophy (BPH), left renal atrophy, chronic kidney disease (CKD) with baseline creatinine of 1.8 to 2.2, history of obstructive uropathy with chronic indwelling Smart catheter present for the last three months, bilateral ureteral stents, and history of mucositis related to chemotherapy. The patient is currently incarcerated. He states at his correctional facility, recently for the past two weeks, he has been receiving intramuscular injections of Toradol twice daily as needed for pain and he also reports recent urinary tract infection for which he has been on Bactrim. The patient was admitted yesterday to [facility] after outpatient blood work revealed a hyperkalemic acute on chronic kidney injury. His admission creatinine was 3.2 with a potassium that peaked at 7.1. The patient was treated with the usual cocktail consisting of calcium, glucose, insulin, Kayexalate, IV fluids, magnesium and Lasix. His potassium subsequently improved to 5.5. He has also been making urine to the Smart catheter and his creatinine improved to 2.6. The patient is seen this morning at the bedside in the intensive care unit and he feels well with only complaint of suprabubic discomfort to palpation. I had a discussion with him at the bedside regarding the reasons behind his hyperkalemic acute kidney injury. PAST MEDICAL HISTORY: 1. Bladder and ureteral cancer. 2. Chronic kidney disease (CKD), stage IIIB, baseline creatinine 1.8 to 2.2. 3. Left kidney atrophy. 4. Obstructive uropathy with retroperitoneal adenopathy and bilateral ureteral stents. 5. History of tobacco use. 6. Thrombocytosis. PAST SURGICAL HISTORY: 1. Bilateral ureteral stents. 2. Ureteroscopy. 3. Transurethral resection of bladder tumor, biopsy showing high-grade urothelial carcinoma. FAMILY HISTORY: Father due to lung cancer. SOCIAL HISTORY: 40-pack year tobacco history. The patient is incarcerated at [facility]. Denies alcohol and drugs. ALLERGIES: No known allergies. HOME MEDICATIONS: Pertinent for recent use of Toradol intramuscular (IM) twice a day for the past two weeks and a 10-day course of Bactrim. Other home medications include Benadryl, multivitamin, omeprazole, and Senokot. REVIEW OF SYSTEMS: Positive for suprapubic discomfort to palpation. Otherwise, review of systems is negative for headache, fevers, chills, chest pain, palpitations, shortness of breath, nausea, vomiting. He has been having recurrent bowel movements from the Kayexalate but he otherwise denies diarrhea. No edema. Remainder of review of systems is negative. PHYSICAL EXAMINATION: VITAL SIGNS: Temperature 98.1, pulse 85, respiratory rate 18, blood pressure 129/79, saturating 100% on room air. INTAKE AND OUTPUT: Intake in total today 3.8 liters. Urine output today 2460, urine output yesterday 1350. Seven recorded bowel movements today. The patient is seen at bedside in the intensive care unit. Law enforcement officers are present during the examination. The patient is sitting at the edge of the bed, eating lunch, in no acute distress, awake, alert, appropriately interactive, pleasantly conversational. HEAD AND NECK: Extraocular muscles are intact. Ears, nose and throat are unremarkable. His mucous membranes are moist and neck supple. There is no jugular venous distention. CARDIAC: S1, S2, 2+ radial pulse. No edema in the dependent areas or in the extremities. LUNGS: Clear to auscultation bilaterally. ABDOMEN: Soft. The patient winces when I palpate the pelvis. There is no rebound to guarding and no costovertebral angle (CVA) tenderness when he is distracted. GENITOURINARY: Smart catheter in place with urine output. EXTREMITIES: No edema. SKIN: No rashes. NEUROLOGIC: No focal deficits, interactive, conversational, and oriented times four. PSYCHIATRIC: Appropriate mood and affect. LABORATORY DATA: White count 8.4, hemoglobin 7.8, platelets 918. Sodium 140, potassium 5.5, chloride 109, bicarbonate 24, BUN 23, creatinine 2.6, glucose 111, phosphorus 5.4, magnesium 2.0, uric acid 5.4, corrected calcium 10.4. IMAGING STUDIES: CT abdomen and pelvis without contrast 02/15/2017 shows enlarged prostate, retroperitoneal adenopathy, bilateral ureteral stents are present, left renal atrophy. INPATIENT MEDICATIONS: The patient is on D5W half normal saline at 100. He received multiple runs of magnesium and calcium and D50 with insulin. He received Lasix 20 mg IV times one, Prilosec 20 mg by mouth daily, Percocet as needed, and multiple doses of Kayexalate. ASSESSMENT AND PLAN: A 61-year-old male with a past medical history of chronic kidney disease (CKD), stage III, baseline creatinine 1.8 to 2.2 with left renal atrophy and known malignancy of the bladder and ureter with retroperitoneal adenopathy and bilateral ureteral stents and chronic indwelling Smart who presents with hyperkalemic acute kidney injury after concurrent use of Toradol and Bactrim for the past 10 days or more. 1. Nonoliguric hyperkalemic acute kidney injury. The patient has underlying CKD secondary to solitary kidney and history of obstructive uropathy. He is currently with acute kidney injury likely secondary to concurrent use of Toradol intramuscular injections with oral Bactrim. Hold all nephrotoxics at this time and continue with gentle IV fluid. The patient's renal function is improving towards known baseline. Imaging did not reveal any significant issues with his functioning right kidney. As far as his hyperkalemia is concerned, I also believe that this is secondary to the decremental decrease in glomerular filtration rate (GFR) from his acute kidney injury and exacerbated by use of Toradol and Bactrim, both of which can cause hyperkalemia. Hold all nephrotics and continue with dextrose-based fluids. I doubt any tumor lysis syndrome at this time. His phosphorus and his uric acid are both fairly acceptable. I will check a lactate dehydrogenase (LDH) and haptoglobin to rule out any hemolysis. 2. Anemia, likely secondary to the patient's chemotherapy. He does have a significant thrombocytosis as well that has increased since his previous admission. We will check LDH and haptoglobin to rule out any occult hemolysis that might be also contributing to hyperkalemia. 3. Hypercalcemia. The patient's corrected calcium is 10.4. He is likely hypercalcemic secondary to the repeated runs of calcium gluconate that he has received. Thank you for involving me in the care of this patient. I will be happy to follow the patient along with you.
--- NOTE | 2017-02-17 19:38 | IPN ---
DATE: 02/17/2017 SUBJECTIVE: The patient is seen this morning at the bedside. He feels well. He reportedly had an episode of sinus tachycardia overnight and his white count has risen today. He is pending blood and urine cultures. I had a long discussion with him at the bedside regarding his renal issues. REVIEW OF SYSTEMS: Negative for fevers, chest pain, palpitations, shortness of breath, nausea, vomiting, diarrhea. Review of systems is positive for occasional chills and tenderness in the suprapubic region. Remainder of review of systems is negative. VITAL SIGNS: Temperature 98.3, pulse 95, respiratory rate 18, blood pressure 145/83, saturating 100% on room air. INTAKE AND OUTPUT: Total intake yesterday 4400, urine output yesterday 2460 with seven recorded bowel movements from Kayexalate. PHYSICAL EXAMINATION: The patient is awake, alert, oriented, in no acute distress. There are correctional officers and the intensive care unit (ICU) nurse present at the bedside. HEAD AND NECK: Extraocular muscles intact. Ears, nose, and throat unremarkable. Moist mucous membranes. Neck is supple, no jugular venous distention. CARDIAC: S1, S2, regular rate and rhythm, 2+ radial pulse. Absolutely no edema in the extremities or dependent area. LUNGS: Bilateral symmetric air entry. Comfortable on room air. ABDOMEN: Soft, nondistended. Bowel sounds are present. Patient grimaces with palpation in the suprapubic region. EXTREMITIES: Negative for edema. GENITOURINARY: Smart catheter in place with urine. LABORATORY DATA: White count 12.5, hemoglobin 8.1, platelets 905. Sodium 141, potassium 5.1, bicarbonate 23, BUN 18, creatinine 2.0, glucose 106, corrected calcium 10, phosphorous 3.5, magnesium 1.8, lactate dehydrogenase 148. Microbiology: Blood and urine cultures pending. INPATIENT MEDICATIONS: The patient continues on dextrose 5% in water (D5W) at 80 mL/hour. He is started today on low dose aspirin and heparin subcutaneous and oral magnesium. His remainder of medications are unchanged from prior. ASSESSMENT AND PLAN: 1. Acute kidney injury (KACIE) on chronic kidney disease (CKD) stage III. Baseline creatinine is about 2 with baseline glomerular filtration rate (GFR) of about 45 mL per minute. The patient most likely had acute kidney injury (KACIE) secondary to concurrent use of Bactrim and intramuscular Toradol injections. His renal function is now back to baseline and he remains Smart dependent. I had a discussion with him regarding his left renal atrophy on CT scan. He notes a history of bilateral nephrostomies and reports significantly decreased urine output from the left as compared to the right historically. 2. Hyperkalemia. The patient received multiple doses of Kayexalate, insulin, D50, calcium, and magnesium, along with dextrose containing fluids and Lasix. His potassium has improved to 5.1. He should be on a potassium restricted diet. As an outpatient he would likely benefit from Veltassa three times weekly to prevent recurrent hyperkalemia. The medication is not on formulary at the hospital, but I will discuss with the primary team in regards to starting it as a discharge medication if the patient's potassium remains borderline elevated. I believe his hyperkalemia was likely secondary to the acute kidney injury and Toradol and Bactrim use. Labs do not suggest any tumor lysis syndrome. His uric acid, phosphorous, and calcium are stable and his lactate dehydrogenase (LDH) is also normal and not suggestive of hemolysis. 3. Leukocytosis. Blood and urine cultures are pending. The patient does report recent urinary tract infection (UTI). He states his Smart catheter has not been changed in the past 3 months. 4. Thrombocytosis. The patient's platelet count has significantly increased over the past 2 months. I am unsure what this is secondary to. He also has a significant anemia that has been present for the last 2 months as well. Despite his significant anemia that has been present for the last 2 months as well, iron stores show a low iron level and low transferrin saturation and I will place him on an iron supplement. No erythropoietin stimulating agents in the setting of malignancy. 5. Bladder and ureteral cancer. The patient follows with urology, is receiving chemotherapy, remains Smart dependent, has retroperitoneal adenopathy and bilateral ureteral stents, and also an enlarged prostate.
[2017-02-17 20:00] VITALS: BP 132/73
--- NOTE | 2017-02-17 20:18 | ECGEPIP ---
Stationary ECG Study [facility] Test Date: 2017-02-16 Pat Name: JA WONG Department: Room: [place] [address] Gender: M Machine Engraver: BURTON LEVINB: 1955 Requested By: ACE HOWELL Order Number: [id number] Reading MD: Jose Rodrigues Measurements Intervals [place] Rate: 75 P: 79 AL: 162 QRS: 71 QRSD: 90 T: 70 QT: 339 QTc: 380 Interpretive Statements SINUS RHYTHM POSSIBLE SEPTAL MYOCARDIAL INFARCTION, OF INDETERMINATE AGE VERSUS POOR R WAVE PROGRESSION DUE TO LEAD PLACEMENT EARLY REPOLARIZATION NOTED COMPARED TO THE LAST 2 TRACINGS ON 12/21/2016 AND 02/15/2017, THERE WAS BETTER R WAVE PROGRESSION Electronically Signed On 02-17-2017 20:18:03 EST by Jose Rodrigues
--- NOTE | 2017-02-17 20:28 | ECGEPIP ---
Stationary ECG Study [facility] Test Date: 2017-02-16 Pat Name: JA WONG Department: Room: [place] [address] Gender: M Customs Investigator: IDALMIS : [id number] Requested By: ONELIA DANG Order Number: [id number] Reading MD: Jose Rodrigues Measurements Intervals [place] Rate: 94 P: 79 AL: 159 QRS: 70 QRSD: 88 T: 67 QT: 307 QTc: 384 Interpretive Statements SINUS RHYTHM ST ELEVATION, PROBABLY EARLY REPOLARIZATION COMPARED TO THE LAST 2 TRACINGS, NO SIGNIFICANT CHANGES. THERE IS NOW BETTER R-WAVE PROGRESSION Electronically Signed On 02-17-2017 20:27:48 EST by Jose Rodrigues
--- NOTE | 2017-02-17 20:35 | ECGEPIP ---
Stationary ECG Study [facility] Test Date: 2017-02-17 Pat Name: JA WONG Department: Room: [place] [address] Gender: M Public Information Director: IDALMIS : [id number] Requested By: ONELIA DAGN Order Number: [id number] Reading MD: Jose Rodrigues Measurements Intervals [place] Rate: 113 P: 77 WI: 155 QRS: 67 QRSD: 86 T: 75 QT: 298 QTc: 410 Interpretive Statements SINUS TACHYCARDIA ABNORMAL RHYTHM ECG LAST 2 TRACINGS ON 02/16/2017. PATIENT IS NOW TACHYCARDIC AND THERE IS NOW LESS EARLY REPOLARIZATION Electronically Signed On 02-17-2017 20:34:44 EST by Jose Rodrigues
[2017-02-17] MEDS: traZODone 50 MG TAB PO SCH (21:26)
[2017-02-17] MEDS: NICOTINE 21MG/24HR 1 EA TRANSDERMAL TD SCH (21:27)
[2017-02-18] VITALS (13 sets, daily range): BP systolic 115–156; BP diastolic 70–88
[2017-02-18] MEDS: D5W/0.45% SODIUM CHLORIDE 1,000 ML IV SCH (02:24)
[2017-02-18 04:53] LABS: MEAN CORPUSCULAR HEMOGLOBIN 26.6 pg (27.0-33.0); MEAN CORPUSCULAR HGB CONC 31.7 g/dl (32.0-36.5); MEAN CORPUSCULAR VOLUME 83.8 fl (80.0-96.0); PLATELET COUNT, AUTOMATED 814 10^3/uL (150-450); RED CELL DISTRIBUTION WIDTH 20.2 % (11.5-14.5); WHITE BLOOD COUNT 10.6 10^3/uL (4.0-10.0)
[2017-02-18 05:02] LABS: ALBUMIN 2.2 GM/DL (3.2-5.2); CALCIUM LEVEL 8.4 MG/DL (8.8-10.2); CREATININE FOR GFR 1.71 MG/DL (0.70-1.30); MAGNESIUM LEVEL 1.7 MG/DL (1.8-2.4); PHOSPHORUS LEVEL 3.2 MG/DL (2.5-4.9); POTASSIUM SERUM 4.5 MEQ/L (3.5-5.1)
[2017-02-18] MEDS: PERCOCET 5MG/325MG TAB PO PRN ×3 (06:02→21:57)
[2017-02-18] MEDS: HEPARIN SOD (PORCINE) 5000 UNITS/ML VIAL SQ SCH ×3 (06:03→21:53)
[2017-02-18] MEDS ORDERED: MAG SULF 1GM/100ML (MAG RUN) 1 GM in APPROPRIATE DILUENT 1 EA IV ONE (07:30)
[2017-02-18] MEDS: ASPIRIN 81 MG ENTERIC TAB PO SCH (07:47)
[2017-02-18] MEDS: MULTIVITAMINS/MINERALS THERAP 1 TAB PO SCH (07:47)
[2017-02-18] MEDS: FERROUS GLUCONATE 324 MG TAB PO SCH (07:47)
[2017-02-18] MEDS: MAGNESIUM OXIDE 400 MG TAB (MAG-OX) PO SCH ×2 (07:47→21:54)
[2017-02-18] MEDS: SENOKOT S TAB PO SCH (07:48)
[2017-02-18] MEDS: OMEPRAZOLE 20 MG CAP PO SCH (07:49)
--- NOTE | 2017-02-18 10:45 | IPNPDOC ---
Text Note Date of Service The patient was seen on 02/18/17. NOTE Subjective: Patient is a 61 year old male with a PMHx of BPH, Ureteral / Bladder CA (s/p chemotherapy, s/p bilateral ureteral stents, s/p Chronic indwelling Smart), CKD3, Thrombocytosis, Hx of Hyponatremia. Patient was recently admitted from 12/18 to 12/31 for active bladder cancer and transferred to [facility] for chemotherapy. Patient had followed up with [facility] to establish chemotherapy sessions their on 02/15. Lab work was acquired on preliminary visit, on transfer back to [facility] they were notified of an elevated Cr and was sent to [facility]. Patient was admitted for KACIE / Hyperkalemia. Patient was seen and examined at the bedside. Patient denies any events overnight. He has no new complaints. He notes that his lower abdominal pain persists. Objective: Vitals (See below) General: Lying in bed, no acute distress, comfortable, AAOx3 HEENT: NC, AT CVS: RRR, +S1S2 Lungs: Fair air entry b/l, -w/r/r Abdomen: Soft, ND, Again tenderness at supra-pubic region and RLQ Extremities: - Edema, - Calf tenderness Assessment and plan: s/p Acute renal failure on CKD3 - likely 2/2 pre-renal etiology, possibly intra- renal etiology (2/2 Chemotherapy, Toradol, Bactrim, Tumor Lysis?), less likely post-renal - Brought in for abnormal elevation in Cr compared to baseline of 1.7-2.0 - Physical with supra-pubic pain and RLQ pain - CT abdomen / pelvis 02/15: Enlarged prostate consistent with carcinoma, decreased, retroperitoneal adenopathy unchanged, b/l ureteral stents, L renal atrophy - Cr has trended down to baseline - c/w IV fluid hydration with D5 1/2 NS - Dr. Mark (Nephrology) consulted; appreciate their input s/p Hyperkalemia with EKG changes - likely 2/2 renal dysfunction - Denies any chest pain, SOB, or palpitations - Troponin negative - s/p Calcium gluconate, Glucose (D50) and Insulin - s/p Kayexalate 30g PO x2 - c/w Telemetry monitoring Hypomagnesemia - Will again supplement via IV - will c/w Oral supplement Normocytic anemia - likely 2/2 chemotherapy - Hg baseline of ~9; Hg on admission of 7.9 - Has fluctuated throughout hospitalization - Has had episodes of sinus tachycardia with ambulation - Will transfuse 2 units PRBC to return to baseline level Thrombocytosis - possibly 2/2 cancer; possibly reactive etiology - Has trended up since December 2016 - Has improved throughout this hospitalization - Will follow up with Hematology / Oncology - c/w ASA 81 Leukocytosis - possibly 2/2 infectious etiology - Mildly improved - Has had low grade fevers - Review of systems negative - CXR negative; UA with possible infection - Urine cutlure pending, Blood culture 02/17: negative at 24 hours - Will hold off on antibiotics Advanced bladder / ureteral CA - will f/u in [facility] Insomnia - c/w Trazodone Hx of Hyponatremia GERD - c/w Omeprazole DVT prophylaxis - c/w SCDs and Lovenox VS,Fishbone, I+O VS, Fishbone, I+O Laboratory Tests 02/18/17 04:26 Red Blood Count 2.71 L, Mean Corpuscular Volume 83.8, Mean Corpuscular Hemoglobin 26.6 L, Mean Corpuscular Hemoglobin Concent 31.7 L, Red Cell Distribution Width 20.2 H, Anion Gap 4 L Vital Signs Date Time Temp Pulse Resp B/P (MAP) Pulse Ox O2 Delivery O2 Flow Rate FiO2 02/18/17 08:00 99.2 95 20 126/70 (88) 96 Room Air I&O- Last 24 Hours up to 6 AM 02/19/17 06:00 Intake Total 240 ml Output Total 700 ml Balance -460 ml ONELIA DANG MD Feb 18, 2017 10:45
--- NOTE | 2017-02-18 13:43 | IPN ---
DATE: 02/18/2017 SUBJECTIVE: The patient is seen this morning at the bedside. He feels well. He denies any acute events overnight. His renal function and his potassium are both improved from prior and I have discontinued him off of IV fluids. He is tolerating oral intake without any issue. His blood cultures came back with no growth for 24 hours. VITALS: Temperature 99.2. Pulse 95. Respiratory rate 18-20. Blood pressure 126/70. Saturating 96% on room air. Intake yesterday 3620. Urine output 3305. Positive 315 mL. Weight is not recorded on the bed scale today. PHYSICAL EXAMINATION: The patient is seen comfortable in the bed in no acute distress. Oriented times four. Head and neck unremarkable. Extraocular muscles are intact. Mucous membranes are moist. Cardiac: S1, S2, regular rate and rhythm. 2+ radial pulse. No edema in the extremities. Lungs: Bilateral air entry. Comfortable on room air. Abdomen: Soft. Nondistended. Bowel sounds are present. The patient complains of tenderness to palpation in the suprapubic region. Genitourinary: Smart catheter in place with urine output. Neurologic: No focal deficits. Psychiatric: Appropriate mood and affect. LABS: White count 10.6, hemoglobin 7.2 and platelets 814. Sodium 139, potassium 4.5, bicarbonate 24, BUN 14, creatinine 1.7, glucose 121, calcium 8.4, magnesium 1.7. MICROBIOLOGY: Blood cultures with no growth for 24 hours. INPATIENT MEDICATIONS: I have discontinued his IV fluids. His other medications are unchanged from prior. PROBLEMS: 1. Acute kidney injury (KACIE) on chronic kidney disease (CKD) Stage III in the setting of concurrent use of Bactrim and intramuscular Toradol injection. The patient's renal function has returned to his baseline. He is tolerating oral intake well. I have discontinued him off of IV fluids. 2. Hyperkalemia. The patient's potassium is normal today. He required multiple doses of Kayexalate and D50 calcium, magnesium, dextrose containing fluids on Lasix to achieve this. He continues on a potassium restricted diet. He denies a prior history of hyperkalemia. I encouraged him to watch his potassium intake when he is released back to the facility. At this point, as he is back to his baseline renal function, I do not think he will require further medications to maintain normal kalemia. 3. Leukocytosis. White count has improved. Blood cultures are negative for 24 hours. His urine culture is pending. He has been fully dependent for at least the past 3 months. 4. Bladder and ureteral cancer. The patient follows with urology and is receiving chemotherapy. He remains fully dependent. Has retroperitoneal adenopathy, bilateral ureteral stents and enlarged prostate. 5. Anemia and thrombocytopenia. The patient is on aspirin and iron supplement. He is pending packed red blood cells (PRBC) transfusion per the primary team. 6. Disposition. The patient is back to his baseline renal function with stable electrolytes and off of IV fluids. Nephrology is signing off the case at this time. Please reconsult for any issues if needed.
[2017-02-18] MEDS ORDERED: SODIUM CHLORIDE 0.9% INJ 10 ML SYR IV PRN (14:00)
[2017-02-18] MEDS ORDERED: MOM 30ML SUSPENSION UDC PO PRN (15:00)
[2017-02-18] MEDS: SODIUM CHLORIDE 0.9% INJ 10 ML SYR IV SCH (16:50)
--- NOTE | 2017-02-18 17:00 | REP ---
Procedure: PICC line insertion with Ziyad-Soraida The procedure was performed under the direct supervision of Dr. Ladd. The risks and benefits of the procedure were explained to the patient and informed consent was obtained. The right basilic vein was localized using ultrasound guidance. The skin was prepped and draped in a sterile fashion. 2% lidocaine was used as a local anesthetic. Using ultrasound guidance the basilic vein was cannulated and a 0.018 guidewire was inserted and advanced to the SVC using fluoroscopic guidance. The needle was removed and a 5.5 Azerbaijani dilator and peel-away sheath was inserted over the guide wire. A 5.5 Azerbaijani dual lumen catheter was cut to length of 45 cm. The dilator was removed and the catheter was inserted over the guide wire with the tip ending in the SVC. The peel-away sheath was removed and the catheter was flushed with heparinized saline as per Hospital protocol. The catheter was affixed to the skin and a sterile dressing was applied. The the patient tolerated the procedure well and there were no immediate complications. 0.2 minutes of fluoro time was utilized for this procedure. Reviewed by ALBERT Chi 02/18/2017 04:50 PSigned by Sean Ladd MD 02/18/2017 04:51 P
[2017-02-18] MEDS: NICOTINE 21MG/24HR 1 EA TRANSDERMAL TD SCH (21:53)
[2017-02-18] MEDS: traZODone 50 MG TAB PO SCH (21:54)
[2017-02-19] VITALS: BP 123/72
[2017-02-19 00:51] LABS: MEAN CORPUSCULAR HEMOGLOBIN 27.2 pg (27.0-33.0); MEAN CORPUSCULAR HGB CONC 32.3 g/dl (32.0-36.5); MEAN CORPUSCULAR VOLUME 84.3 fl (80.0-96.0); RED CELL DISTRIBUTION WIDTH 19.2 % (11.5-14.5); WHITE BLOOD COUNT 10.9 10^3/uL (4.0-10.0)
[2017-02-19 00:56] LABS: PLATELET COUNT, AUTOMATED 642 10^3/uL (150-450)
[2017-02-19 04:00] VITALS: BP 130/84
[2017-02-19 04:27] LABS: MEAN CORPUSCULAR HEMOGLOBIN 27.4 pg (27.0-33.0); MEAN CORPUSCULAR HGB CONC 32.1 g/dl (32.0-36.5); MEAN CORPUSCULAR VOLUME 85.2 fl (80.0-96.0); PLATELET COUNT, AUTOMATED 654 10^3/uL (150-450); RED CELL DISTRIBUTION WIDTH 19.1 % (11.5-14.5); WHITE BLOOD COUNT 9.9 10^3/uL (4.0-10.0)
[2017-02-19 04:39] LABS: ALBUMIN 2.3 GM/DL (3.2-5.2); CALCIUM LEVEL 8.8 MG/DL (8.8-10.2); CREATININE FOR GFR 1.59 MG/DL (0.70-1.30); GLOMERULAR FILTRATION RATE 57.6 (>49); MAGNESIUM LEVEL 1.8 MG/DL (1.8-2.4); PHOSPHORUS LEVEL 3.5 MG/DL (2.5-4.9); POTASSIUM SERUM 4.9 MEQ/L (3.5-5.1)
[2017-02-19] MEDS: PERCOCET 5MG/325MG TAB PO PRN ×3 (06:01→22:02)
[2017-02-19] MEDS: HEPARIN SOD (PORCINE) 5000 UNITS/ML VIAL SQ SCH ×3 (06:02→22:02)
[2017-02-19] MEDS: SODIUM CHLORIDE 0.9% INJ 10 ML SYR IV SCH ×2 (06:02→18:20)
[2017-02-19 08:00] VITALS: BP 134/83
[2017-02-19] MEDS: OMEPRAZOLE 20 MG CAP PO SCH (08:40)
[2017-02-19] MEDS: MAGNESIUM OXIDE 400 MG TAB (MAG-OX) PO SCH ×2 (08:40→22:00)
[2017-02-19] MEDS: MULTIVITAMINS/MINERALS THERAP 1 TAB PO SCH (08:40)
[2017-02-19] MEDS: FERROUS GLUCONATE 324 MG TAB PO SCH (08:41)
[2017-02-19] MEDS: SOD POLYSTYRENE SULFONATE SUSP 15 GM/60 ML UD PO SCH ×2 (08:41→09:41)
[2017-02-19] MEDS: SENOKOT S TAB PO SCH (08:41)
[2017-02-19] MEDS: ASPIRIN 81 MG ENTERIC TAB PO SCH (08:41)
[2017-02-19] MEDS ORDERED: ASPI81TAEC PO (11:53)
[2017-02-19] MEDS ORDERED: NICO21PAT TD (11:54)
[2017-02-19] MEDS ORDERED: MAG400TA PO (11:54)
[2017-02-19] MEDS ORDERED: FERR32TA PO (11:54)
[2017-02-19] MEDS ORDERED: TRAZO50TA PO (11:54)
[2017-02-19 12:46] VITALS: BP 142/78
--- NOTE | 2017-02-19 13:08 | IPN ---
DATE: 02/19/2017 The patient is seen and examined at the bedside. Chart has been reviewed. The patient was started on aspirin yesterday due to elevated platelet count, it was a million on 02/15/2017, decreased to 654 currently. He currently has no complaints of headaches, changes in vision, neuralgia. No other issues per nursing overnight. He is requesting for tajik fries for a diet. Temperature 98.7, pulse 94, respiratory rate 18, blood pressure 134/83, 97% on room air. GENERAL: Awake, alert and oriented times three. Answering questions appropriately. LUNGS: Clear to auscultation. No wheezing, rales or rhonchi. HEART: S1, S2. Sinus rhythm. ABDOMEN: Soft, nontender, nondistended. Positive bowel sounds. EXTREMITIES: No cyanosis, clubbing. Laboratory data has been reviewed. Microbiology has been reviewed. ASSESSMENT AND PLAN: This is a 61-year-old male who was diagnosed with ureteral and bladder cancer, status post chemotherapy and bilateral ureteral stents, chronic indwelling catheter at [facility] and was recently seen as a new patient at [facility] in [place], chronic kidney disease stage III, thrombocytosis, hyponatremia, admitted on 12/18 to 12/31/2016 for bladder cancer and transferred to [place] for chemotherapy and recently seen at [facility] for chemotherapy. The patient was transferred back to the assisted. He was notified of elevated BUN and creatinine and sent to [facility] for acute kidney injury and hyperkalemia thought to be secondary to the Toradol intramuscularly and Bactrim given at the assisted. CURRENT ISSUES: 1. Acute on chronic renal failure, stage III. Prerenal etiology, possibly intrarenal, secondary to Toradol intramuscularly, chemotherapy, Bactrim and less post likely postrenal. The patient responded to IV fluid hydration and Kayexalate. CT of the abdomen and pelvis on 02/15/2017 shows enlarged prostate consistent with carcinoma, decreased retroperitoneal adenopathy, unchanged, bilateral ureteral stents, left renal atrophy, creatinine has trended back down to baseline. Dr. Latricia Mark, nephrology, has signed off. 2. Hyperkalemia, improved with one dose of Kayexalate. Monitor and keep on renal diet with low potassium. 3. Hypomagnesemia. On magnesium supplements. 4. Normocytic anemia, likely secondary to chemotherapy. 5. Episodes of sinus tachycardia with ambulation. The patient is being transfused 2 units of RBC. 6. Thrombocytosis. Currently on aspirin 81 mg daily. Outpatient followup with hematology and oncology. Most likely reactive, currently improved from one million to 694,000. 7. Leukocytosis, improved. Chest x-ray is negative. UA possible infection. Currently on no antibiotics. 8. Advanced bladder and ureteral cancer. Followup at [facility]. 9. Benign prostatic hypertrophy (BPH), chronic. 10. Insomnia, on trazodone. 11. History of hyponatremia, resolved. 12. Reflux. On omeprazole. 13. Deep vein thrombosis (DVT) prophylaxis with Lovenox. DISPOSITION: May transfer to medical/surgical. If stable, may discharge tomorrow. MTDD
[2017-02-19 20:43] LABS: CALCIUM LEVEL 8.6 MG/DL (8.8-10.2); CREATININE FOR GFR 1.61 MG/DL (0.70-1.30); GLOMERULAR FILTRATION RATE 56.8 (>49)
[2017-02-19 22:00] VITALS: BP 146/76
[2017-02-19] MEDS: traZODone 50 MG TAB PO SCH (22:02)
[2017-02-19] MEDS: NICOTINE 21MG/24HR 1 EA TRANSDERMAL TD SCH (22:03)
[2017-02-20] MEDS: HEPARIN SOD (PORCINE) 5000 UNITS/ML VIAL SQ SCH (05:28)
[2017-02-20] MEDS: SODIUM CHLORIDE 0.9% INJ 10 ML SYR IV SCH (05:28)
[2017-02-20] MEDS: PERCOCET 5MG/325MG TAB PO PRN ×2 (05:52→11:36)
[2017-02-20 06:00] VITALS: BP 134/85
[2017-02-20 06:22] LABS: ALBUMIN 2.3 GM/DL (3.2-5.2); CALCIUM LEVEL 8.6 MG/DL (8.8-10.2); CREATININE FOR GFR 1.6 MG/DL (0.70-1.30); GLOMERULAR FILTRATION RATE 57.2 (>49); MAGNESIUM LEVEL 1.7 MG/DL (1.8-2.4); PHOSPHORUS LEVEL 3.6 MG/DL (2.5-4.9); POTASSIUM SERUM 4.2 MEQ/L (3.5-5.1)
[2017-02-20 06:54] LABS: MEAN CORPUSCULAR HEMOGLOBIN 26.7 pg (27.0-33.0); MEAN CORPUSCULAR HGB CONC 31.5 g/dl (32.0-36.5); MEAN CORPUSCULAR VOLUME 84.6 fl (80.0-96.0); PLATELET COUNT, AUTOMATED 636 10^3/uL (150-450); RED CELL DISTRIBUTION WIDTH 19.6 % (11.5-14.5); WHITE BLOOD COUNT 12.7 10^3/uL (4.0-10.0)
[2017-02-20] MEDS ORDERED: MAG SULF 1GM/100ML (MAG RUN) 1 GM in APPROPRIATE DILUENT 1 EA IV ONE (07:45)
[2017-02-20] MEDS: MAGNESIUM OXIDE 400 MG TAB (MAG-OX) PO SCH (08:23)
[2017-02-20] MEDS: MULTIVITAMINS/MINERALS THERAP 1 TAB PO SCH (08:23)
[2017-02-20] MEDS: OMEPRAZOLE 20 MG CAP PO SCH (08:23)
[2017-02-20] MEDS: SENOKOT S TAB PO SCH (08:24)
[2017-02-20] MEDS: FERROUS GLUCONATE 324 MG TAB PO SCH (08:24)
[2017-02-20] MEDS: ASPIRIN 81 MG ENTERIC TAB PO SCH (08:24)
--- NOTE | 2017-02-20 11:06 | DSES ---
DATE OF ADMISSION: 02/15/2017 DATE OF DISCHARGE: 02/20/17 CONSULTANTS DURING ADMISSION: Dr. Mark, bin piler. PRIMARY DISCHARGE DIAGNOSES: 1. Acute on chronic renal failure Stage III secondary to Toradol intramuscular, chemotherapy, Bactrim, and less likely post renal. 2. Hyperkalemia secondary to renal failure. 3. Hypermagnesemia due to Kayexalate. 4. Normocytic anemia likely secondary to chemotherapy. 5. Episodes of sinus tachycardia with ablation. 6. Anemia requiring two units of packed red blood cell transfusion. 7. Thrombocytosis with platelet count over 1 million, improved. 8. Advanced bladder and ureteral cancer, undergoing chemotherapy at [facility] in [place] as well as previously in [facility]. 9. Benign prostatic hypertrophy. 10. Insomnia. 11. Hyponatremia. 12. Reflux. DISCHARGE MEDICATIONS: - aspirin 81 mg daily - ferrous gluconate 324 mg daily - magnesium oxide 400 mg twice a day - nicotine patch one patch daily 21 mg - trazodone 50 mg at bedtime - diphenhydramine 25 mg - Senokot one tablet daily - multivitamin one tablet daily - omeprazole 20 daily Recheck BMP 02/21/2017 regarding hyperkalemia and renal failure. HOSPITAL COURSE: This is a 61-year-old male with recent diagnosis of ureteral and bladder cancer, status post chemotherapy at [facility], bilateral ureteral stents and chronic indwelling catheter who was recently seen as a new patient at [facility] in [place] and was found to have hyperkalemia and acute on chronic failure. He was sent to [facility] for further management. The patient was found to have acute tubular injury secondary to intramuscular Toradol twice a day as needed for pain, as well as, recent use of Bactrim and chemotherapy. The patient's potassium peaked at 7.1 with admission creatinine of 3.2. The patient was given the usual cocktail of calcium gluconate, glucose, insulin, Kayexalate, intravenous fluids, magnesium and Lasix with subsequent improvement in potassium to 5.5. Smart catheter was placed. Creatinine improved to 2.6. The bin piler was consulted. The patient only complained of suprapubic discomfort. Urine culture on 02/17/2017 and blood cultures were negative. No growth. The patient improved with intravenous fluids and Kayexalate. Over the next few days, hemodynamically stable. He had no signs of infection and was afebrile despite slight elevation in white count. He had multiple episodes of low magnesium of 1.7. The patient improved significantly and had had no other issues during this admission. The patient has developed chemotherapy induced anemia with hemoglobin of 7.4 and received 2 units of red blood cell transfusion during this admission with no other sequelae. LABS ON DISCHARGE: White count 12.7, hemoglobin 9.9, hematocrit 31 and platelet count 636. Sodium 141, potassium 4.2, chloride 108, bicarbonate 28, BUN 15, creatinine 1.6, glucose 93, magnesium 1.7, calcium 8.6. Urine culture no growth on 02/17/2017. Blood culture no growth after 72 hours on 02/17/2017. MTDD
== END 2017-02-20 12:45 | DRG 460 ==
LOC: EDBD 15:05 → M ED 15:05 → M ED INP 18:57 → M ICU 19:54 → M MSPAV 02-19 12:41
PROVIDERS: ADMIT Internal Medicine; ATTEND General Practice
PROC: 30233N1 Transfusion of Nonautologous Red Blood Cells into Peripheral Vein, Percutaneous Approach (ICD-10-PCS; principal; 2017-02-18)
PROC: 02HV33Z Insertion of Infusion Device into Superior Vena Cava, Percutaneous Approach (ICD-10-PCS; 2017-02-18)
DX: N17.0 Acute kidney failure with tubular necrosis (principal); N18.3 Chronic kidney disease, stage 3 (moderate); E87.5 Hyperkalemia; E83.41 Hypermagnesemia; D64.81 Anemia due to antineoplastic chemotherapy; K21.9 Gastro-esophageal reflux disease without esophagitis; G47.00 Insomnia, unspecified; E87.1 Hypo-osmolality and hyponatremia; N40.0 Benign prostatic hyperplasia without lower urinary tract symptoms; C67.6 Malignant neoplasm of ureteric orifice; R00.0 Tachycardia, unspecified; D47.3 Essential (hemorrhagic) thrombocythemia; Z79.82 Long term (current) use of aspirin; Z79.899 Other long term (current) drug therapy; D72.829 Elevated white blood cell count, unspecified; E83.52 Hypercalcemia; Z92.21 Personal history of antineoplastic chemotherapy

== ENCOUNTER → 2017-03-25 | Outpatient (REF) | payer OTHER ==
[~2017-03-25] MED LIST changes: +ASPI81TAEC PO; +BACT800T5 PO; +FERR32TA PO; +KETO30IN4 IM; +MAG400TA PO; +NICO21PAT TD; +OMEP20CA3 PO; +SENN8.6T54 PO; +TRAZO50TA PO; +VITMTA PO
[2017-03-25 09:53] LABS: MEAN CORPUSCULAR HEMOGLOBIN 27.3 pg (27.0-33.0); PLATELET COUNT, AUTOMATED 221 10^3/uL (150-450); RED CELL DISTRIBUTION WIDTH 17.8 % (11.5-14.5); WHITE BLOOD COUNT 4.7 10^3/uL (4.0-10.0)
[2017-03-25 09:57] LABS: ADD MANUAL DIFFER YES; BLASTS POS FLAG; DIFF SLIDE NUMBER 158; POSITIVE MORPH POS FLAG
[2017-03-25 10:03] LABS: CALCIUM LEVEL 9.1 MG/DL (8.8-10.2); CREATININE FOR GFR 2.3 MG/DL (0.70-1.30); GLOMERULAR FILTRATION RATE 37.6 (>49); POTASSIUM SERUM 5.1 MEQ/L (3.5-5.1)
[2017-03-25 10:12] LABS: EOSINOPHILS 3 % (0-5)
[2017-03-25 10:13] LABS: ANISOCYTOSIS 1+; HYPOCHROMASIA 1+
== END ==
LOC: M LAB REF 09:12
PROVIDERS: ATTEND Thoracic Surgery (Cardiothoracic Vascular Surgery)
DX: C67.9 Malignant neoplasm of bladder, unspecified (principal)